=== PATIENT | female | born 1940 | race Caucasian/White ===

== ENCOUNTER 2018-05-07 18:14 | Emergency (ER) | payer MEDICARE, OTHER, SELFPAY ==
[2018-05-07 18:15] VITALS: BP 192/79; PULSE 73; RESP 14; TEMP 36.8; O2SAT 97; BMI 27.2
--- NOTE | 2018-05-07 18:51 | CT_ITS ---
STUDY: CT BRAIN WITHOUT CONTRAST REASON FOR EXAM: Female, 77 years old. Confusion. Pain. RADIATION DOSAGE (If Supplied By Facility): CTDIvol = ( 44.99 ) mGy, DLP = ( 745.49 ) mGycm TECHNIQUE: Transaxial CT imaging of the brain was performed without administration of intravenous contrast material. Individualized dose optimization techniques were used for this CT. COMPARISON: None. FINDINGS: Normal soft tissue structures. Normal calvarium. Heavily calcified vessels are seen at the base of the brain. Normal size ventricles and extra-axial spaces for the patient's age. Normal white matter tracts of the cerebral hemispheres. Normal basal ganglia and thalami. Normal brainstem. Normal cerebellum. There is no intracranial hemorrhage. There are no findings of an acute ischemic infarction. Normal visualized paranasal sinuses. CT/Brain/Head without Contrast IMPRESSION: Normal unenhanced CT scan of the brain. Electronically Signed: Jagjit Clemens MD at 19:59 EDT , Service support ,
[2018-05-07 19:17] LABS: Absolute Lymphocyte Count 2.33 X10^3/ul (0.83-4.51); Absolute Neutrophil Count 3.5 X10^3/uL (2.0-7.7); Basophil# 0.01 X10^3/uL; Basophil% 0.2 % (0-1); Eosinophil# 0.17 X10^3/uL; Eosinophils% 2.6 % (0-5); Hematocrit 39.5 % (37-47); Hemoglobin 12.7 g/dl (12.0-15.0); Lymphocyte # 2.33 X10^3/ul (4.0); Mean Corp Hgb Conc 32.2 g/gl (32-36); Mean Corpuscular Hgb 28.5 pg (27.0-32.0); Mean Corpuscular Volume 88.8 fL (81-99); Mean Platelet Vol. 9.5 fl (6.2-12.0); Monocyte# 0.45 X10^3/uL; Platelet Count 184 K/mm3 (150-450); RBC Distribution Width CV 14.2 % (11.6-14.6); RBC Distribution Width SD 46.2 fl (35.1-43.9); Red Blood Count 4.45 M/mm3 (4.2-5.4); White Blood Count 6.5 K/mm3 (4.4-11.0)
[2018-05-07 19:23] LABS: POSITIVE COUNT NO; POSITIVE DIFFERENTIAL NO; POSITIVE MORPHOLOGY NO
[2018-05-07 19:38] LABS: Anion Gap 6 (5-15); BUN 19 mg/dL (7-18); Calcium,Total 9.1 mg/dL (8.5-10.1); Chloride 100 mmol/L (98-107); EST Glomerular Filtration Rate 57 mL/min (>60); Est Glom Filt Rate - Afr Amer 69 mL/min (>60); Estimated Creatinine Clearance 39.39 ml/min; Glucose 128 mg/dL (74-106); Potassium 3.9 mmol/L (3.5-5.1); Sodium Level 136 mmol/L (136-145)
[2018-05-07 20:04] LABS: Bacteria 0 SEEN /hpf (None Seen); Mucous, Urine 0 SEEN /hpf (<or=2+); Red Blood Cells-Urine 0 SEEN /hpf (0-5)
[2018-05-07 20:08] LABS: Color, Urine Yellow (Yellow); Glucose, Dipstick Normal (Normal); Ketone-Dipstick Negative (Negative); Leukocyte Esterase-Dipstick 100 /ul (Negative); Nitrite-Dipstick Negative (Negative); Occult Blood-Urine Negative /ul (Negative); Protein-Dipstick Negative (Negative); Urine Bilirubin Dipstick Negative (Negative); Urine Clarity Clear (Clear); Urine Urobilinogen Normal (Normal)
[2018-05-07 20:48] LABS: Squamous Epithelial Cells - UA 0-5 SEEN /hpf (5-10); White Blood Cells 0-5 SEEN /hpf (0-5)
[2018-05-07 21:20] VITALS: BP 161/70; PULSE 65; RESP 17; O2SAT 95
--- NOTE | 2018-05-07 21:20 | ED.VISSUMM ---
- ER Visit Summary Date of Service: 05/07/18 Chief Complaint: Left occipital intermittent severe pain, right atraumatic intermittent shoulder pain, dysuria and change in mental status History of Present Illness: The patient is a 77 F who has history of hypertension, GERD and depression. She states she is depressed. She lives alone. She states her daughters do call her daily. They have not noted any problems with speech or slurring of her words. They have noted that she has been forgetful. She denies any ocular, visual or auditory symptoms. She denies problems with fluency or slurring of her words. She denies cardiac or respiratory symptoms. She denies nausea, vomiting or diarrhea. She does complain of frequency and dysuria. She states she has had urinary tract infections in the past. She does report being depressed and anxious. She states the left occipital and right shoulder pain are alleviated with Tylenol. Daughters were concerned because she was talking using her cell phone yesterday and asked where her cell phone was while she was talking on cell phone. She has gotten lost as well. There is no history of dementia. Physical Examination: Pleasant elderly woman with an elevated blood pressure of 192/79. Vital signs otherwise unremarkable. Head is atraumatic normocephalic. Pupils are equal round reactive. Extraocular muscles are intact. TMs are pearly white with landmarks noted. Nares patent with no drainage. Posterior pharynx without erythema or exudate. Uvula is midline. There is no dysphonia or dysphasia. Trachea is midline. There is no stridor with auscultation of the neck. There is no lesions noted left occipital area. Heart is regular without murmur, gallop or rub. S1 and S2 are normal. Lungs are clear to auscultation with good movement of air bilaterally. She has full active range of motion of the right upper extremity. Axillary, median, radial and ulnar function intact. DTRs at the biceps, brachialis, triceps, patella and ankle are 1+ and symmetric. Is no clonus or Babinski sign noted. Abdomen is soft nontender with no suprapubic discomfort. There is no CVA tenderness noted. She is alert and oriented ?3. Motor sensory are intact. Cerebellar testing is normal. Test Results: CBC is normal. Basic metabolic panel reveals elevated glucose 128. UA is remarkable leukoesterase otherwise negative. CT of the head was reviewed by me interpreted radiologist as negative. Patient was informed of her results and need for follow-up with Dr. Adriano Obrien iii Emergency Department Course and Treatment: With change in mental status will obtain CT to evaluate for atrophy, mass/tumor. Because she complains of urinary symptoms UA was obtained and basic blood work was obtained. 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 Treatment Plan: Outpatient follow-up with her primary care physician Disposition: Discharged home Impression: 1. 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 Depression 3. Dysuria unknown etiology 4. Hypertension and hypertensive patient's This note was generated with [employer] dictation software. It may contain incorrect words, spelling, and punctuation that were not noted in review of the chart prior to signing ED Disposition - Plan for ED Patient: Disposition: Home or Assisted Living Chief Complaint: Weakness Instructions: ED Confusion, ED Dysuria Uncertain Cause, ED Depression Referrals: Adriano Obrien III, MD [Primary Care Provider] - 5-7 Days
[2018-05-07 21:27] VITALS: BP 161/70; PULSE 65; RESP 17; O2SAT 99
== END 2018-05-07 21:37 | disposition home or self-care (01) ==
PROVIDERS: Emergency Provider Emergency Medicine; Family Provider Family Medicine; PCP Family Medicine
DX: R41.82 Altered mental status, unspecified (principal); F32.9 Major depressive disorder, single episode, unspecified; R30.0 Dysuria; I10 Essential (primary) hypertension; R51 Headache; M25.511 Pain in right shoulder; R35.0 Frequency of micturition; R60.0 Localized edema; K21.9 Gastro-esophageal reflux disease without esophagitis; Z87.440 Personal history of urinary (tract) infections; Z79.82 Long term (current) use of aspirin; Z79.899 Other long term (current) drug therapy
CPT/HCPCS: 70450; 80048; 81001; 85025; 99283

== ENCOUNTER → 2018-06-20 09:27 | Outpatient (CLI) | payer MEDICARE, OTHER, SELFPAY ==
--- NOTE | 2018-06-20 09:32 | CT_ITS ---
STUDY: CT ABDOMEN AND PELVIS WITHOUT CONTRAST REASON FOR EXAM: Female, 77 years old. Two-week history of low back pain with a UTI and microhematuria. RADIATION DOSAGE (If Supplied By Facility): CTDIvol = ( 10.37 ) mGy, DLP = ( 430.95 ) mGycm TECHNIQUE: Transaxial images were obtained from the dome of the diaphragm to the symphysis pubis without oral contrast, and without intravenous contrast. Sagittal and coronal images were reconstructed. Individualized dose optimization techniques were used for this CT. COMPARISON: None. FINDINGS: The visualized lung bases are unremarkable. Coronary artery calcification. Normal liver. Normal gallbladder and extrahepatic biliary system. Normal spleen. Normal pancreas. Normal bilateral adrenal glands. There are 2 left renal cysts. The cyst measures 4.5 cm x 4.1 cm x 3.7 cm in the upper lateral aspect. There is also evidence of a 4.6 cm x 5.6 m cyst in the inferior lateral portion of the right kidney. Normal left kidney. No evidence of hydronephrosis. Normal visualized stomach. Normal small intestine. There are multiple colonic diverticula consistent with diverticulosis. The appendix is visualized and appears normal. There is diffuse atherosclerotic calcification of the abdominal aorta and its major visceral branches, without a demonstrated aneurysm. Normal inferior vena cava. Normal retroperitoneum. Normal urinary bladder. There is evidence of bilateral tubal ligation. There is a small umbilical hernia containing fat. There are diffuse degenerative changes of the visualized lumbar spine. CT/Abdomen/Pelvis without Cont IMPRESSION: Right renal cysts. Sigmoid diverticulosis. No abnormal calcification is seen within the kidneys or course of the ureters. Electronically Signed: Fredrick Hester MD at 10:27 EST Tel [phone], Service support ,
== END ==
PROVIDERS: Family Provider Family Medicine; PCP Family Medicine; Referring Provider Nurse Practitioner Adult Health; Visit Provider Nurse Practitioner Adult Health
DX: R31.1 Benign essential microscopic hematuria (principal); N20.0 Calculus of kidney; N30.10 Interstitial cystitis (chronic) without hematuria; N39.0 Urinary tract infection, site not specified
CPT/HCPCS: 74176; 87086

== ENCOUNTER → 2018-06-20 19:50 | Outpatient (CLI) | payer MEDICARE, OTHER, SELFPAY | PROVIDERS: Family Provider Family Medicine; PCP Family Medicine; Referring Provider Nurse Practitioner Adult Health; Visit Provider Nurse Practitioner Adult Health | DX: N39.0 Urinary tract infection, site not specified (principal) | CPT/HCPCS: 87086 ==

== ENCOUNTER → 2018-11-26 16:24 | Outpatient (CLI) | payer MEDICARE, OTHER, SELFPAY | PROVIDERS: Family Provider Family Medicine; PCP Family Medicine; Referring Provider Nurse Practitioner Adult Health; Visit Provider Nurse Practitioner Adult Health | DX: R82.998 Other abnormal findings in urine (principal) | CPT/HCPCS: 87086; 87088 ==

== ENCOUNTER 2018-12-12 18:16 | Emergency (ER) | payer MEDICARE, OTHER, SELFPAY ==
[2018-12-12 18:17] VITALS: BP 162/79; PULSE 85; RESP 18; TEMP 36.6; O2SAT 96; BMI 27.4
--- NOTE | 2018-12-12 19:08 | CT_ITS ---
STUDY: CT BRAIN WITHOUT CONTRAST REASON FOR EXAM: Female, 78 years old. fall RADIATION DOSAGE (If Supplied By Facility): DLP = ( 779.24 ) mGycm TECHNIQUE: Transaxial CT imaging of the brain was performed without administration of intravenous contrast material. Individualized dose optimization techniques were used for this CT. COMPARISON: May 07, 2018 FINDINGS: There is no acute bleed or infarct. There are normal white matter tracts. The ventricles are normal in configuration. There is no hydrocephalus. There is bilateral maxillary sinus disease. The mastoid air cells are well aerated. There is no skull fracture. CT/Brain/Head without Contrast IMPRESSION: No acute intracranial abnormality. Bilateral maxillary sinus disease. Electronically Signed: Tripp Perry, at 20:12 EDT Tel , Service support ,
[2018-12-12] MEDS: Diphth,Pertuss(Acell),Tet Vac 0.5 ML Vial IM (19:25)
[2018-12-12 19:28] VITALS: O2SAT 96
--- NOTE | 2018-12-12 20:50 | ED.VISSUMM ---
- ER Visit Summary Date of Service: 12/12/18 Chief Complaint: Fall History of Present Illness: The patient is a 78 F who sustained a mechanical fall. She hit the left side of her face. She also sustained abrasions to her bilateral forearms. Denies any arm pain. Denies head pain or neck pain. Denies loss of consciousness. She takes an aspirin twice a week. No other blood thinners. No other complaints. Physical Examination: Vitals unremarkable. Left forehead abrasion noted. Otherwise HEENT exam and head exam unremarkable. Neck is nontender. Patient has multiple bilateral forearm skin tears. No bony tenderness. Good range of motion. No deformities. Neurovascular intact distally. Exam otherwise unremarkable. Test Results: CT brain unremarkable. Emergency Department Course and Treatment: Tetanus updated. Skin tears were dressed. No indication for suturing. CT brain unremarkable. No indication for further diagnostic testing. Patient will be discharged. Treatment Plan: As above Disposition: Discharge Impression: 1. Bilateral forearm abrasions 2. Concussion without loss of consciousness This note was generated with [employer] dictation software. It may contain incorrect words, spelling, and punctuation that were not noted in review of the chart prior to signing ED Disposition - Plan for ED Patient: Disposition: Home or Assisted Living Instructions: ED Mechanical Fall Referrals: Adriano Obrien III, MD [Primary Care Provider] -
--- NOTE | 2018-12-12 20:50 | ED.DEP ---
ED Disposition - Plan for ED Patient: Instructions: ED Mechanical Fall Referrals: Adriano Obrien III, MD [Primary Care Provider] -
[2018-12-12 21:00] VITALS: BP 158/64; PULSE 77; RESP 15; O2SAT 98
== END 2018-12-12 21:01 | disposition home or self-care (01) ==
LOC: ED 19:21
PROVIDERS: Emergency Provider Emergency Medicine; Family Provider Family Medicine; PCP Family Medicine
DX: S06.0X0A Concussion without loss of consciousness, initial encounter (principal); S00.81XA Abrasion of other part of head, initial encounter; S50.812A Abrasion of left forearm, initial encounter; S50.811A Abrasion of right forearm, initial encounter; W19.XXXA Unspecified fall, initial encounter; Y93.9 Activity, unspecified; Y92.9 Unspecified place or not applicable
CPT/HCPCS: 70450; 90471; 90715; 99282

== ENCOUNTER 2019-02-11 11:19 | Inpatient (IN) | payer MEDICARE, OTHER, SELFPAY ==
[2019-02-11] VITALS (7 sets, daily range): BP systolic 121–143; BP diastolic 44–75; PULSE 81–89; RESP 16–18; TEMP 36.8–36.9; O2SAT 96–98; BMI 27.3; BMI 27.4; BMI 27.0
--- NOTE | 2019-02-11 11:40 | ED.DCSUM_ITS ---
- ER Visit Summary Date of Service: 02/11/19 Chief Complaint: Fever, positive blood culture History of Present Illness: The patient is a 78 F with fever of mild lower abdominal pain of the past 4 days. She had mild cough. She was seen by PCP yesterday. Chest x-ray was clear and urine was equivocal. Blood culture returned with gram-negative rods today and patient was sent to the emergency room. Patient reports her last fever was yesterday. She has had no nausea or vomiting. She has mild aching in her lower abdomen and reports pressure when she urinates. I did call her pharmacy and she was given a prescription for Levaquin 500 mg yesterday. She has taken 1 dose. Physical Examination: Vital signs are unremarkable. Patient sitting upright in bed no acute distress. Heart is regular rate and rhythm. Lung sounds are clear. Abdomen is soft with mild suprapubic tenderness. No guarding or rebound. Hypoactive bowel sounds are present. Test Results: CBC is normal at 10.2 but left shift is noted. Hemoglobin is 11.1 and platelet count is 130,000. Chemistry studies significant for sodium of 127 and a chloride of 92. BUN is 41 and creatinine is 1.92. LFTs revealed direct bili of 0.32. Urinalysis shows 10-25 white cells with 3+ bacteria. Lactate is 1.4. Blood cultures and urine cultures were sent again today. Emergency Department Course and Treatment: Patient was given IV fluids along with IV Rocephin. She will be admitted for further treatment. Treatment Plan: [] Disposition: Admit Impression: 1. Cystitis 2. Bacteremia This note was generated with [employer] dictation software. It may contain incorrect words, spelling, and punctuation that were not noted in review of the chart prior to signing ED Disposition - Plan for ED Patient: Referrals: Adriano Obrien III, MD [Primary Care Provider] -
[2019-02-11 11:56] LABS: Mucous, Urine 0 SEEN /hpf (<or=2+)
[2019-02-11] MEDS: 0.9% Normal Saline 1,000 ML 150 ML IV (12:08)
[2019-02-11] MEDS: Ceftriaxone 1 GM/50 ML BAG IV (12:08)
[2019-02-11 12:19] LABS: Absolute Lymphocyte Count 0.45 X10^3/ul (0.83-4.51); Differential Indicated SCAN CRITERIA MET; Eosinophil# 0.02 X10^3/uL; Eosinophils% 0.2 % (0-5); Hematocrit 33.4 % (37-47); Hemoglobin 11.1 g/dl (12.0-15.0); Lymphocyte # 0.45 X10^3/ul (4.0); Lymphocyte % 4.4 % (19-41); Mean Corp Hgb Conc 33.2 g/gl (32-36); Mean Corpuscular Hgb 28.7 pg (27.0-32.0); Mean Corpuscular Volume 86.3 fL (81-99); Mean Platelet Vol. 10.5 fl (6.2-12.0); Monocyte# 0.68 X10^3/uL; Monocyte% 6.7 % (0-10); Neutrophil # 8.99 X10^3/uL (2.7-7.7); Neutrophil % 88.5 % (47-70); POSITIVE COUNT NO; POSITIVE DIFFERENTIAL YES; POSITIVE MORPHOLOGY NO; Platelet Count 130 K/mm3 (150-450); RBC Distribution Width CV 14.1 % (11.6-14.6); RBC Distribution Width SD 43.4 fl (35.1-43.9); Red Blood Count 3.87 M/mm3 (4.2-5.4); White Blood Count 10.2 K/mm3 (4.4-11.0)
[2019-02-11 12:27] LABS: AST(SGOT) 14 U/L (15-37); Alanine Aminotransfer ALT/SGPT 19 U/L (13-56); Albumin, Serum 3.3 g/dL (3.2-5.0); Alkaline Phosphatase 92 U/L (45-117); Anion Gap 9 (5-15); BUN 41 mg/dL (7-18); BUN/Creat Ratio 21.4 RATIO (10-20); Bilirubin, Direct 0.32 mg/dL (0.00-0.30); Calcium,Total 8.9 mg/dL (8.5-10.1); Chloride 92 mmol/L (98-107); Creatinine, Serum 1.92 mg/dL (0.55-1.02); EST Glomerular Filtration Rate 27 mL/min (>60); Est Glom Filt Rate - Afr Amer 32 mL/min (>60); Estimated Creatinine Clearance 20.18 ml/min; Globulin 3.7 g/dL (2.2-4.2); Glucose 102 mg/dL (74-106); Potassium 3.5 mmol/L (3.5-5.1); Sodium Level 127 mmol/L (136-145)
[2019-02-11 12:29] LABS: Color, Urine Yellow (Yellow); Glucose, Dipstick Normal (Normal); Ketone-Dipstick Negative (Negative); Leukocyte Esterase-Dipstick 100 /ul (Negative); Nitrite-Dipstick Negative (Negative); Occult Blood-Urine 50 /ul (Negative); Protein-Dipstick 30 mg/dl (Negative); Specific Gravity, Urine 1.015 (1.002-1.030); Urine Bilirubin Dipstick Negative (Negative); Urine Clarity Cloudy (Clear); Urine Urobilinogen 1 mg/dl (Normal)
[2019-02-11 12:31] LABS: Bacteria 3+ /hpf (None Seen); Red Blood Cells-Urine 0-5 SEEN /hpf (0-5); Squamous Epithelial Cells - UA 0-5 SEEN /hpf (5-10); White Blood Cells 10-25 SEEN /hpf (0-5)
[2019-02-11 12:34] LABS: Lactic Acid 1.4 mmol/L (0.4-2.0)
--- NOTE | 2019-02-11 13:12 | PCM.HP.STD ---
Problem List (1) UTI (urinary tract infection) Status: Acute (2) Gram-negative bacteremia Status: Acute (3) Recurrent UTI Status: Chronic (4) Hypertension Status: Chronic (5) History of kidney stone Status: Chronic History of Present Illness Date of Admission: 02/11/19 Chief Complaint: UTI symptoms and bacteremia The patient is a 78 year with multiple comorbidities as listed above has increased perineal pressure, lower back pain, increased frequency and urgency for last 4 days. The patient has generalized weakness, fever and chills for last 4 days. The patient denies burning micturition/dysuria. Patient was seen by PCP Dr. Adriano Obrien iii on 02/10 urine was equivocal on dipstick. Chest x-ray was clear. Blood cultures were drawn. The patient was given Levaquin 500 mg and she took 1 dose. The patient was called back for positive blood culture, gram-negative rods to ER. The patient has chronic back pain. In ED, patient was not febrile, not tachycardic, pulse ox 98% on room air. Blood pressure stable. Initial labs did not show leukocytosis but neutrophil 88%.Labs BUN/creatinine 41/1.92. Sodium 127, K3.5, bicarb 26. UA positive of WBCs 10-20 5/7, LE 100, nitrite negative bacteria 3+. Past Medical History Past Medical History (Chronic Problems): Chronic Problems Recurrent UTI (Chronic) Hypertension (Chronic) History of kidney stone (Chronic) Allergies ciprofloxacin [From Cipro] Allergy (Verified 02/11/19 11:22) Unknown ciprofloxacin HCl [From Cipro] Allergy (Verified 02/11/19 11:22) Unknown sulfamethoxazole [From Bactrim] Allergy (Verified 02/11/19 11:22) Unknown trimethoprim [From Bactrim] Allergy (Verified 02/11/19 11:22) Unknown acetaminophen [From [place]] Adverse Reaction (Verified 02/11/19 11:23) MENTAL STATUS CHANGE hydrocodone [From [place]] Adverse Reaction (Verified 02/11/19 11:23) MENTAL STATUS CHANGE nitrofurantoin [From Macrobid] Adverse Reaction (Verified 02/11/19 11:23) Upset Stomach Home Medications: Ambulatory Orders Medication Instructions Recorded Aspirin E.C. [Ecotrin] 81 mg PO MOFR 05/28/14 Meloxicam [Mobic] 15 mg PO DAILY 05/28/14 Pantoprazole Sodium [Protonix] 40 mg PO DAILY 05/28/14 traZODone [Desyrel] 50 mg PO QHS 05/28/14 Lisinopril [Zestril] 40 mg PO DAILY 12/24/16 Acetaminophen [Tylenol] 650 mg PO Q6H PRN PRN 05/07/18 Fluticasone 0.05% [Flonase Nasal 2 spray NASAL DAILY 05/07/18 [place]] hydroCHLOROthiazide 12.5 mg PO DAILY 05/07/18 [Hydrochlorothiazide] Amlodipine Besylate 5 mg PO DAILY 02/11/19 Cholecalciferol (Vitamin D3) 2,000 unit PO DAILY 02/11/19 [Vitamin D3] Levofloxacin 500 mg PO DAILY 02/11/19 Levothyroxine [Synthroid] 25 mcg PO DAILY 02/11/19 Smoking Status: Never smoker Review of Systems Constitutional: Reports: Chills, Fever, Weakness. Denies: Weight Change HEENT: Denies: Head Aches, Sinus Congestion, Sinus Drainage Cardiovascular: Reports: Edema. Denies: Chest Pain, Palpitations Respiratory: Denies: Cough, Shortness of breath at rest, Sputum production Gastrointestinal: Denies: Abdominal Pain, Nausea, Vomiting Genitourinary: Reports: Frequency, Hesitancy, Incontinence, Urgency, - - Mild suprapubic pressure. Denies: Dysuria Musculoskeletal: Reports: Joint Pain. Denies: Joint Tenderness Skin: Denies: Rash, Wounds Neurological: Denies: Numbness, Tingling, Focal weakness Psychiatric: Denies: Anxiety, Depression, Homicidal Ideations, Suicidal Ideations Hematologic/ Lymphatic: Denies: Easy Bruising, Easy Bleeding VTE Information - Inpt Only VTE Present on Admission: No VTE Mechan Device Prophylaxis: None VTE Pharm Prophylaxis ordered?: Yes Patient Problems: Active and Suspected Problems UTI (urinary tract infection) (Acute) Gram-negative bacteremia (Acute) - Physical Exam General: Alert, Oriented x3, Cooperative HEENT: Atraumatic, PERRLA, EOMI, Normocephalic Oral: Dry Mucosa Neck: Supple, No JVD, Negative Carotid Bruits Lungs: Clear to auscultation, Normal air movement Cardiovascular: Regular rate, Regular Rhythm, Normal S1, Normal S2, No murmurs Abdomen: Bowel Sounds Present, Soft, Non Tender, Non-Distended Extremities: Capillary Refill Less than 3 Seconds, Edema - Bilateral lower extremity edema 3+, chronic in nature. Bilateral lower extremity varicose vein present Skin: No rashes, No breakdown Musculoskeletal: No Tenderness to Palpation of Joints or Extremities, Arthritic Changes Neurological: Cranial nerves II-XII grossly intact, Deep Tendon Reflexes 2+/4 and Symmetrical, Neuro grossly intact, Motor Exam 5/5 strength throughout Psych/Mental Status: Normal Affect, Appropriate Vital Signs Temp Pulse Resp BP Pulse Ox 98.4 F 85 17 143/75 H 97 02/11/19 13:00 02/11/19 13:00 02/11/19 13:00 02/11/19 13:00 02/11/19 13:00 Oxygen Delivery Method Room Air Weight: 159 lb 6.307 oz Body Mass Index (BMI) 27.3 Laboratory Tests Past 24 Hrs 02/11/19 02/11/19 02/11/19 11:40 12:00 12:00 WBC 10.2 RBC 3.87 L Hgb 11.1 L Hct 33.4 L MCV 86.3 MCH 28.7 MCHC 33.2 RDW 14.1 RDW Differential 43.4 Plt Count 130 L MPV 10.5 Immature Gran % (Auto) 0.200 Neut % (Auto) 88.5 H Lymph % (Auto) 4.4 L [place] % (Auto) 6.7 Eos % (Auto) 0.2 Baso % (Auto) 0.0 Absolute Neuts (auto) 9.0 H Absolute Lymphs (auto) 0.45 L Total Counted Not Reportable Differential Comment Sodium 127 L Potassium 3.5 Chloride 92 L Carbon Dioxide 26.0 Anion Gap 9 BUN 41 H Creatinine 1.92 H Estim Creat Clear Calc 20.18 Est GFR (MDRD) Af Amer 32 L Est GFR (MDRD) Non-Af 27 L BUN/Creatinine Ratio 21.4 H Glucose 102 Lactic Acid Calcium 8.9 Total Bilirubin 1.00 Direct Bilirubin 0.32 H AST 14 L ALT 19 Alkaline Phosphatase 92 Total Protein 7.0 Albumin 3.3 Globulin 3.7 Urine Color Yellow Urine Clarity Cloudy Urine pH 5.0 Ur Specific [place] 1.015 Urine Protein 30 H Urine Glucose (UA) Normal Urine Ketones Negative Urine Occult Blood 50 H Urine Nitrite Negative Urine Bilirubin Negative Urine Urobilinogen 1 H Ur Leukocyte Esterase 100 H Urine RBC 0-5 SEEN Urine WBC 10-25 SEEN Ur Squamous Epith Cells 0-5 SEEN Urine Bacteria 3+ Urine Mucus 0 SEEN 02/11/19 12:00 WBC RBC Hgb Hct MCV MCH MCHC RDW RDW Differential Plt Count MPV Immature Gran % (Auto) Neut % (Auto) Lymph % (Auto) [place] % (Auto) Eos % (Auto) Baso % (Auto) Absolute Neuts (auto) Absolute Lymphs (auto) Total Counted Differential Comment Sodium Potassium Chloride Carbon Dioxide Anion Gap BUN Creatinine Estim Creat Clear Calc Est GFR (MDRD) Af Amer Est GFR (MDRD) Non-Af BUN/Creatinine Ratio Glucose Lactic Acid 1.4 Calcium Total Bilirubin Direct Bilirubin AST ALT Alkaline Phosphatase Total Protein Albumin Globulin Urine Color Urine Clarity Urine pH Ur Specific [place] Urine Protein Urine Glucose (UA) Urine Ketones Urine Occult Blood Urine Nitrite Urine Bilirubin Urine Urobilinogen Ur Leukocyte Esterase Urine RBC Urine WBC Ur Squamous Epith Cells Urine Bacteria Urine Mucus Assessment/Plan All Active Problems UTI (urinary tract infection) (Acute) Gram-negative bacteremia (Acute) The patient is a 78 year with multiple comorbidities as listed above has increased perineal pressure, lower back pain, increased frequency and urgency for last 4 days consistent with UTI. The patient has generalized weakness, fever and chills for last 4 days. Patient has gram-negative kishore bacteremia from blood cultures drawn in PCP office on 02/10/2019. Patient denies any history of recent urethral catheterization/instrumentation. 1. UTI, possible cystitis but rule out pyelonephritis: Patient has history of kidney stones and had ureteral stone many years ago probably by Dr. Navarrete. Started on IV ceftriaxone and will continue it. Urine culture and blood cultures x2 sent from ER. Ultrasound kidneys and bladder ordered. Bladder scan for urinary retention. IV fluid normal saline at 100 mL/h. 2. Acute kidney injury possible prerenal/UTI infection: Baseline BUN/creatinine 19/1.0 in April 2018. Currently BUN/creatinine 41/1.92. On IV fluid normal saline. Monitor kidney function and electrolytes daily. Hypertension: Blood pressure medications continue. 3. Bilateral lower extremity swelling/edema with varicose vein possible lymphedema: Patient on home medication, amlodipine discontinued. Venous Doppler ordered. Bilateral Michael wrap bandage if DVT negative. 4. Hypothyroidism, GERD: Diffuse degenerative joint disease and anxiety: Home medications continued. DVT prophylaxis: On Lovenox 30 mg, adjusted to creatinine clearance subcu daily. Code Visit Inpatient E&M: 98188 Init Hosp L3
--- NOTE | 2019-02-11 13:40 | CASEMGMT ---
RN CM Assessment Introduced role of RN CM to patient and patient Dtr Connie at bedside.? Patient is alert, oriented and able?to participate in RN CM Assessment. ?Care providers, pharmacy, and demographics verified. Presentation: Lower Abd pain x4 days. Seen PCP yesterday- cxr clear and Urine equivocal, started on Levaquin (has taken one dose). BCX returned today- gram neg rods, sent to ER. Admit Dx: UTI w/Bacteremia Re-Admit: No Barriers/Issues: None PCP: Adriano Obrien III Specialists: Adrián- Kerri Preferred Pharmacy: [facility] Insurance: [employer], [employer] Rx Benefit:?Yes LNOK: Dtr Connie Eladia LEMONS/HPOA: No, Declines offered information Living Arrangements:?Lives alone in a SS home, 4 steps to enter. ADL?s: Independent with ambulation and ADLs Transportation: Patient drives, Dtr Connie to transport on DC DME: None HHC: Past SNF: None Goal: Home, does not think will have any needs. Denies questions/concerns. Aware CM remains available for any emerging needs. DC PLAN: Home with no anticipated needs identified at this time. Tayler Arita RNCM
--- NOTE | 2019-02-11 13:46 | VDLE_ITS ---
Reason For Study: swelling RIGHT LEFT GSV is normal. GSV is normal. CFV is compressible, spontaneous, phasic, CFV is compressible, spontaneous, phasic, competent and demonstrates normal competent, and demonstrates normal augmentation. augmentation. FV is compressible, spontaneous, phasic, FV is compressible, spontaneous, phasic, competent and demonstrates normal competent and demonstrates normal augmentation. augmentation. POP V is compressible, spontaneous, phasic, POP V is compressible, spontaneous, phasic, competent and demonstrates normal competent and demonstrates normal augmentation. augmentation. T/P Trunk is compressible. T/P Trunk is compressible. PTV is compressible. PTV is compressible. RT PerV is compressible. LT PerV is compressible. Procedure Exam performed portable in patient room. The exam was diagnostic. A preliminary report was called and/or faxed to the pt's RN. Interpretation Summary No evidence for acute deep venous thrombosis bilateral lower extremities with patent and compressible bilateral great saphenous veins. Ordering Physician: Edwardo Mcadams Referring Physician: LAURA Obrien M.D. Performed By: Tanmay Springer Nathan
--- NOTE | 2019-02-11 14:07 | US_ITS ---
STUDY: RENAL ULTRASOUND - COMPLETE REASON FOR EXAM: Female, 78 years old. UTI TECHNIQUE: Ultrasound evaluation of the kidneys was performed with real-time and static baer-scale imaging. COMPARISON: CT scan of 06/20/2018 FINDINGS: RIGHT KIDNEY: Normal location of the right kidney, which is normal in size. The right kidney measures 10.1 x 5.1 x 4.0 cm. There is a normal cortex of the right kidney. The renal cortex measures 1.6 cm. 2 renal cysts are seen measuring 3.7 and 5.1 cm There are no right renal calculi. There is no right hydronephrosis. DISTAL RIGHT URETER: There is non-visualization of the distal right ureter. There is no demonstrated right ureterovesical junction calculus. There is no demonstrated right ureteral jet. LEFT KIDNEY: Normal location of the left kidney, which is normal in size. The left kidney measures 12.2 x 5.4 x 5.8 cm. There is a normal cortex of the left kidney. The renal cortex measures 2.2 cm. There is no left renal mass or cyst. There are no left renal calculi. There is no left hydronephrosis. DISTAL LEFT URETER: There is non-visualization of the distal left ureter. There is no demonstrated left ureterovesical junction calculus. There is no demonstrated left ureteral jet. BLADDER: The distended urinary bladder has a volume of 52 ml. There is a normal wall thickness of the distended urinary bladder. There is no demonstrated mass within the urinary bladder. There are no demonstrated bladder calculi. US/Kidney and Bladder IMPRESSION: No acute abnormalities. Stable right renal cysts. Electronically Signed: Jagjit Clemens MD at 17:33 EDT , Service support ,
[2019-02-11] MEDS: Acetaminophen 325 MG Tablet 650 MG PO ×2 (15:36→21:41)
[2019-02-11] MEDS: 0.9% Normal Saline 1,000 ML 100 ML IV (16:57)
[2019-02-11] MEDS: Enoxaparin 30 MG/0.3 ML Syringe SC (17:00)
[2019-02-11] MEDS: traZODone 50 MG Tablet PO (21:11)
[2019-02-12] MEDS: 0.9% Normal Saline 1,000 ML 100 ML IV (02:11)
[2019-02-12 02:13] VITALS: BP 149/56; PULSE 89; RESP 16; TEMP 36.9; O2SAT 95
[2019-02-12] MEDS: Acetaminophen 325 MG Tablet 650 MG PO (05:44)
[2019-02-12] MEDS: Levothyroxine 25 MCG TABLET PO (05:45)
[2019-02-12 06:11] LABS: Absolute Lymphocyte Count 0.45 X10^3/ul (0.83-4.51); Absolute Neutrophil Count 4.6 X10^3/uL (2.0-7.7); Eosinophil# 0.03 X10^3/uL; Eosinophils% 0.5 % (0-5); Hematocrit 31.1 % (37-47); Hemoglobin 10.5 g/dl (12.0-15.0); Lymphocyte # 0.45 X10^3/ul (4.0); Lymphocyte % 8.1 % (19-41); Mean Corp Hgb Conc 33.8 g/gl (32-36); Mean Corpuscular Hgb 29.2 pg (27.0-32.0); Mean Corpuscular Volume 86.6 fL (81-99); Mean Platelet Vol. 10.7 fl (6.2-12.0); Monocyte# 0.46 X10^3/uL; Monocyte% 8.2 % (0-10); Neutrophil # 4.63 X10^3/uL (2.7-7.7); Platelet Count 125 K/mm3 (150-450); RBC Distribution Width CV 14.3 % (11.6-14.6); RBC Distribution Width SD 43.8 fl (35.1-43.9); Red Blood Count 3.59 M/mm3 (4.2-5.4); White Blood Count 5.6 K/mm3 (4.4-11.0)
[2019-02-12 06:17] LABS: Differential Indicated SCAN CRITERIA MET; POSITIVE COUNT NO; POSITIVE DIFFERENTIAL YES; POSITIVE MORPHOLOGY NO
[2019-02-12 06:18] LABS: Anion Gap 9 (5-15); BUN 34 mg/dL (7-18); BUN/Creat Ratio 25.2 RATIO (10-20); Calcium,Total 8.8 mg/dL (8.5-10.1); Chloride 101 mmol/L (98-107); Creatinine, Serum 1.35 mg/dL (0.55-1.02); EST Glomerular Filtration Rate 40 mL/min (>60); Est Glom Filt Rate - Afr Amer 49 mL/min (>60); Glucose 108 mg/dL (74-106); Potassium 3.5 mmol/L (3.5-5.1); Sodium Level 135 mmol/L (136-145); Thyroid Stim Hormone (TSH) 3.16 uIU/mL (0.358-3.74)
[2019-02-12 07:39] VITALS: BP 126/61; PULSE 79; RESP 18; TEMP 36.9; O2SAT 94
[2019-02-12] MEDS: Fluticasone 0.05% 1 SPRAY NASAL.SRY 2 SPRAY NASAL (07:42)
[2019-02-12] MEDS: Polyethylene Glycol 3350 17 GM PACKET PO (07:42)
[2019-02-12] MEDS: Pantoprazole Sodium 40 MG Tablet PO (07:50)
[2019-02-12] MEDS: Enoxaparin 30 MG/0.3 ML Syringe SC (07:50)
[2019-02-12] MEDS: Ceftriaxone 1 GM/50 ML BAG IV (10:16)
[2019-02-12 14:00] VITALS: BP 140/64; PULSE 82; RESP 18; TEMP 36.6; O2SAT 97
--- NOTE | 2019-02-12 16:07 | PCM.PN.HOSP ---
Patient Problems: Active and Suspected Problems UTI (urinary tract infection) (Acute) Gram-negative bacteremia (Acute) Subjective: Overall, patient is feeling better. No fever since admission. Denies chills/diaphoresis.. No tachycardia Objective: General: Alert, Oriented x3, Cooperative HEENT: Atraumatic, PERRLA, EOMI, Normocephalic Oral: Mucosa moist. Neck: Supple, No JVD, Negative Carotid Bruits Lungs: Clear to auscultation, Normal air movement Cardiovascular: Regular rate, Regular Rhythm, Normal S1, Normal S2, No murmurs Abdomen: Bowel Sounds Present, Soft, Non Tender, Non-Distended. No suprapubic or renal angle tenderness. Extremities: Capillary Refill Less than 3 Seconds, Edema - Bilateral lower extremity edema 3+, chronic in nature. Bilateral lower extremity varicose vein present Skin: No rashes, No breakdown Musculoskeletal: No Tenderness to Palpation of Joints or Extremities, Arthritic Changes Neurological: Cranial nerves II-XII grossly intact, Deep Tendon Reflexes 2+/4 and Symmetrical, Neuro grossly intact, Motor Exam 5/5 strength throughout Psych/Mental Status: Normal Affect, Appropriate Vitals/I&O's: Vital Signs Temp Pulse Resp BP Pulse Ox 97.9 F 82 18 140/64 H 97 02/12/19 14:00 02/12/19 14:00 02/12/19 14:00 02/12/19 14:00 02/12/19 14:00 Oxygen Delivery Method Room Air Weight: 157 lb 10.088 oz Body Mass Index (BMI) 27.0 Intake and Output for Last 24 Hours 02/10/19 02/11/19 02/12/19 23:59 23:59 23:59 Intake Total 3245 / 3245 Output Total 3400 / 3400 Balance -155 / -155 Microbiology Past 72 Hours 02/11/19 12:00 Blood Culture (Wb) - Anticubital Left Blood Culture - Preliminary Laboratory Results 02/12/19 05:24: Sodium 135 L, Potassium 3.5, Chloride 101, Carbon Dioxide 25.0, Anion Gap 9, BUN 34 H, Creatinine 1.35 H, Estim Creat Clear Calc 28.70, Est GFR (MDRD) Af Amer 49 L, Est GFR (MDRD) Non-Af 40 L, BUN/Creatinine Ratio 25.2 H, Glucose 108 H, Calcium 8.8, TSH 3.16 02/12/19 05:24: WBC 5.6, RBC 3.59 L, Hgb 10.5 L, Hct 31.1 L, MCV 86.6, MCH 29.2, MCHC 33.8, RDW 14.3, RDW Differential 43.8, Plt Count 125 L, MPV 10.7, Immature Gran % (Auto) 0.200, Neut % (Auto) 83.0 H, Lymph % (Auto) 8.1 L, [place] % (Auto) 8.2, Eos % (Auto) 0.5, Baso % (Auto) 0.0, Absolute Neuts (auto) 4.6, Absolute Lymphs (auto) 0.45 L, Total Counted Not Reportable Current Medications Acetaminophen (Tylenol) 650 mg PO Q6H PRN PRN PRN Reason: Mild Pain (1-3)/Temp > 100.7 F Last Admin: 02/12/19 05:44 Dose: 650 mg Documented by: Albuterol Sulfate (Ventolin Aerosols) 2.5 mg INHALATION Q2H PRN PRN PRN Reason: Shortness of Breath/Wheezing Aspirin (Ecotrin) 81 mg PO MOFR [facility] Cholecalciferol (Vitamin D) 2,000 unit PO DAILY [facility] Last Admin: 02/12/19 07:42 Dose: 2,000 unit Documented by: Docusate Sodium (Colace) 200 mg PO BID PRN PRN PRN Reason: Constipation Enoxaparin Sodium (Lovenox) 30 mg SC DAILY@1000 [facility] Last Admin: 02/12/19 07:50 Dose: 30 mg Documented by: Fluticasone Propionate (Flonase Nasal [place]) 2 spray NASAL DAILY [facility] Last Admin: 02/12/19 07:42 Dose: 2 spray Documented by: Ceftriaxone Sodium (Rocephin) 1 gm in 50 mls @ 100 mls/hr IV Q24H [facility] Last Admin: 02/12/19 10:16 Dose: 100 mls/hr Documented by: Levothyroxine Sodium (Synthroid) 25 mcg PO DAILY@0600 [facility] Last Admin: 02/12/19 05:45 Dose: 25 mcg Documented by: Nutritional Formula (Lactose Free) (Ensure Enlive) 120 ml PO 4X/DAY [facility] Last Admin: 02/12/19 14:02 Dose: Not Given Documented by: Ondansetron HCl (Zofran) 4 mg IV Q8H PRN PRN PRN Reason: NAUSEA/VOMITING Pantoprazole Sodium (Protonix) 40 mg PO DAILY [facility] Last Admin: 02/12/19 07:50 Dose: 40 mg Documented by: Polyethylene Glycol (Miralax) 17 gm PO DAILY [facility] Last Admin: 02/12/19 07:42 Dose: 17 gm Documented by: Promethazine HCl (Phenergan) 12.5 mg IV Q6H PRN PRN PRN Reason: Breakthrough nausea/vomiting Sodium Chloride () 10 - 40 ml IV UD PRN PRN Reason: SALINE FLUSH Trazodone HCl (Desyrel) 50 mg PO QHS [facility] Last Admin: 02/11/19 21:11 Dose: 50 mg Documented by: Medical Necessity - Tobacco Use Smoking Status: Never smoker Assessment/Plan All Active Problems UTI (urinary tract infection) (Acute) Gram-negative bacteremia (Acute) The patient is a 78 year with multiple comorbidities as listed above has increased perineal pressure, lower back pain, increased frequency and urgency for last 4 days consistent with UTI. The patient has generalized weakness, fever and chills for last 4 days. Patient has gram-negative kishore bacteremia from blood cultures drawn in PCP office on 02/10/2019. Patient denies any history of recent urethral catheterization/instrumentation. 1. UTI, possible cystitis but rule out pyelonephritis: Patient has history of kidney stones and had ureteral stone many years ago probably by Dr. Navarrete. Started on IV ceftriaxone and will continue it. Preliminary blood culture from 02/11 shows gram-negative rods. Urine culture is pending. Bladder scan for urinary retention. Renal bladder ultrasound shows no acute abnormalities. Stable right renal cyst. Distended urinary bladder volume 52 mL. Normal wall thickness of distended urinary bladder. No demonstrated mass or calculi. The patient is afebrile for more than 24 hours with no tachycardia or other systemic signs of infection. 2. Acute kidney injury possible prerenal/UTI infection: Baseline BUN/creatinine 19/1.0 in April 2018. Currently BUN/creatinine 41/1.92. On IV fluid normal saline. BUN/creatinine has improved 34/1.35. Hypertension: Blood pressure medications continue. 3. Bilateral lower extremity swelling/edema with varicose vein possible lymphedema: Patient on home medication, amlodipine discontinued. Venous Doppler ordered. Bilateral Michael wrap bandage if DVT negative. 4. Hypothyroidism, GERD: Diffuse degenerative joint disease and anxiety: Home medications continued. DVT prophylaxis: On Lovenox 30 mg, adjusted to creatinine clearance subcu daily. Microbiology Past 72 Hours 02/11/19 12:00 Blood Culture (Wb) - Anticubital Left Blood Culture - Preliminary Laboratory Results 02/12/19 05:24: Sodium 135 L, Potassium 3.5, Chloride 101, Carbon Dioxide 25.0, Anion Gap 9, BUN 34 H, Creatinine 1.35 H, Estim Creat Clear Calc 28.70, Est GFR (MDRD) Af Amer 49 L, Est GFR (MDRD) Non-Af 40 L, BUN/Creatinine Ratio 25.2 H, Glucose 108 H, Calcium 8.8, TSH 3.16 02/12/19 05:24: WBC 5.6, RBC 3.59 L, Hgb 10.5 L, Hct 31.1 L, MCV 86.6, MCH 29.2, MCHC 33.8, RDW 14.3, RDW Differential 43.8, Plt Count 125 L, MPV 10.7, Immature Gran % (Auto) 0.200, Neut % (Auto) 83.0 H, Lymph % (Auto) 8.1 L, [place] % (Auto) 8.2, Eos % (Auto) 0.5, Baso % (Auto) 0.0, Absolute Neuts (auto) 4.6, Absolute Lymphs (auto) 0.45 L, Total Counted Not Reportable Clinical Impression(s) from Imaging Studies Renal Ultrasound 02/11/19 14:07 IMPRESSION: No acute abnormalities. Stable right renal cysts. Code Visit Inpatient E&M: 28706 Subs Hosp L3
[2019-02-12] MEDS: Docusate Sodium 100 MG Capsule 200 MG PO (20:30)
[2019-02-12 20:31] VITALS: BP 140/60; PULSE 87; RESP 16; TEMP 36.7; O2SAT 96
[2019-02-12] MEDS: traZODone 50 MG Tablet PO (22:44)
[2019-02-13 02:20] VITALS: BP 152/64; PULSE 89; RESP 16; TEMP 37.6; O2SAT 96
[2019-02-13] MEDS: Levothyroxine 25 MCG TABLET PO (05:17)
[2019-02-13 07:44] VITALS: O2SAT 95
[2019-02-13 09:11] VITALS: BP 132/60; PULSE 79; RESP 18; TEMP 36.8; O2SAT 97
[2019-02-13] MEDS: Fluticasone 0.05% 1 SPRAY NASAL.SRY 2 SPRAY NASAL (09:17)
[2019-02-13] MEDS: Enoxaparin 30 MG/0.3 ML Syringe SC (09:18)
[2019-02-13] MEDS: 0.9% NaCl Peripheral Flush Adult/Peds IV (09:19)
[2019-02-13] MEDS: Pantoprazole Sodium 40 MG Tablet PO (09:19)
[2019-02-13] MEDS: Ceftriaxone 1 GM/50 ML BAG IV (09:20)
--- NOTE | 2019-02-13 11:29 | DCINST_ITS ---
- Discharge Diagnoses Current Active Problems: Current Active and Chronic Problems UTI (urinary tract infection) (Acute) Gram-negative bacteremia (Acute) Recurrent UTI (Chronic) Hypertension (Chronic) History of kidney stone (Chronic) You will use the following diet at home:: Cardiac Your food should be the consistency of: Regular Discharge Activity: May Not Drive Weight Bearing Status: Weight bearing as tolerated Call your doctor if you observe: Fever of 101 or Higher, Coldness, Increased Pain, Numbness or Tingling, Inability to urinate, Inability to have a bowel movement, Shortness of breath, Dizziness, Fainting spells, Swelling in the ankles, Chest pain, Increased palpitations (irregular heartbeat) Additional Instructions: Patient was advised that she might receive phone call if urine culture blood culture not sensitive to the antibiotic cefdinir. Preliminary blood culture is growing gram-negative kishore. We will follow-up repeat blood culture and urine culture done 02/13/2090 Allergies/Adverse Reactions: Allergies ciprofloxacin [From Cipro] Adverse Reaction (Verified 02/11/19 14:22) made me feel funny ciprofloxacin HCl [From Cipro] Adverse Reaction (Verified 02/11/19 14:22) made me feel funny hydrocodone [From [place]] Adverse Reaction (Verified 02/11/19 11:23) MENTAL STATUS CHANGE nitrofurantoin [From Macrobid] Adverse Reaction (Verified 02/11/19 11:23) Upset Stomach Medications to take at Discharge Aspirin E.C. [Ecotrin] 81 mg PO MOFR 05/28/14 Pantoprazole Sodium [Protonix] 40 mg PO DAILY 05/28/14 traZODone [Desyrel] 50 mg PO QHS 05/28/14 Lisinopril [Zestril] 40 mg PO DAILY 12/24/16 Acetaminophen [Tylenol] 650 mg PO Q6H PRN PRN 05/07/18 Fluticasone 0.05% [Flonase Nasal [place]] 2 spray NASAL DAILY 05/07/18 hydroCHLOROthiazide [Hydrochlorothiazide] 12.5 mg PO DAILY 05/07/18 Amlodipine Besylate 5 mg PO DAILY 02/11/19 Cholecalciferol (Vitamin D3) [Vitamin D3] 2,000 unit PO DAILY 02/11/19 Levofloxacin 500 mg PO DAILY 02/11/19 Levothyroxine [Synthroid] 25 mcg PO DAILY 02/11/19 Cefdinir [Omnicef [equiv]] 300 mg PO Q12H #14 cap 02/13/19 Meloxicam [Mobic] 7.5 mg PO DAILY #0 02/13/19 The following prescriptions were given: Cefdinir [Omnicef [equiv]] 300 mg PO Q12H #14 cap Transmission Status: Pending to [facility] Primary Care Physician: Adriano Obrien III, MD [Primary Care Provider] - Please follow up with your Primary Care Physician in: in 1 weeks Test Results: Test results from this visit will be discussed in further detail at your follow- up appointment, if applicable.
--- NOTE | 2019-02-13 12:31 | DS.PCM_ITS ---
Discharge Date and Diagnosis Date of Admission: 02/11/19 Date of Discharge: 02/13/19 - Primary Discharge Diagnosis Active and Suspected Problems UTI (urinary tract infection) (Acute) Gram-negative bacteremia (Acute) - Secondary Discharge Diagnosis Chronic Problems Recurrent UTI (Chronic) Hypertension (Chronic) History of kidney stone (Chronic) Hospital Course and Treatment Summary of Care Provided: [] The patient is a 78 year with multiple comorbidities as listed above has increased perineal pressure, lower back pain, increased frequency and urgency for last 4 days consistent with UTI. The patient has generalized weakness, fever and chills for last 4 days. Patient has gram-negative kishore bacteremia from blood cultures drawn in PCP office on 02/10/2019. Patient denies any history of recent urethral catheterization/instrumentation. 1. UTI/cystitis with gram-negative kishore bacteremia. Pyelonephritis ruled out: Patient has history of kidney stones and had ureteral stone many years ago probably by Dr. Navarrete. Started on IV ceftriaxone and will continue it. Preliminary blood culture from 02/11 shows gram-negative rods. Urine culture shows mixed gram-positive organisms history of contamination. Renal bladder ultrasound shows no acute abnormalities. Stable right renal cyst. Distended urinary bladder volume 52 mL. Normal wall thickness of distended urinary bladder. No demonstrated mass or calculi. The patient is afebrile for more than 48 hours with no tachycardia, tachypnea/hypoxia/leukocytosis or other systemic signs of infection. Patient had low-grade 99.7 Fahrenheit. Blood cultures x1 and urine culture collected. will follow-up the culture. Patient wants to go home. Discharged on 7 more days of cefdinir 300 mg twice daily. 2. Acute kidney injury possible prerenal/UTI infection: Baseline BUN/creatinine 19/1.0 in April 2018. Currently BUN/creatinine 41/1.92. On IV fluid normal saline. BUN/creatinine has improved 34/1.35. Resolved. Hypertension: Blood pressure medications continue. 3. Bilateral lower extremity swelling/edema with varicose vein possible lymphedema: Patient on home medication, amlodipine discontinued. Venous Doppler ordered. Bilateral Michael wrap bandage if DVT negative. 4. Hypothyroidism, GERD: Diffuse degenerative joint disease and anxiety: Home medications continued. DVT prophylaxis: On Lovenox 30 mg, adjusted to creatinine clearance subcu daily. Discharge medication reconciliation done. Discharge follow-up instructions completed. Discharge process discussed with the patient and all questions were answered to patient's satisfaction. Patient wants to go home. Final blood culture and urine culture are pending. Patient was advised to expect to receive call if there is change in final organism growth or if organism is not sensitive to Cefdinir, then antibiotic needs to be changed. She agrees with the plan. We will follow the culture. Patient discharged home. Advised to follow with PCP in 1 week. Total time spent, exact 35 minutes on discharge meds reconciliation, examination, review of imaging and blood test and discussion with the patient on follow-up instructions. Subjective: Seen and examined. Patient did not had high-grade fever since admission more than 48 hours. T-max 99.7. No tachycardia. Blood pressure good. No tachypn ea/hypoxia. Patient wants to go home. - Physical Exam General: Alert, Oriented x3, Cooperative HEENT: Atraumatic, PERRLA, EOMI, Normocephalic Neck: Supple, No JVD, Negative Carotid Bruits Lungs: Clear to auscultation, Normal air movement, No rhonchi, No wheeze, No rales Cardiovascular: Regular rate, Regular Rhythm, Normal S1, Normal S2, No murmurs Abdomen: Bowel Sounds Present, Soft, Non Tender, Non-Distended, - - No renal angle tenderness/suprapubic tenderness. Extremities: No edema, Capillary Refill Less than 3 Seconds Skin: No rashes, No breakdown Musculoskeletal: No Tenderness to Palpation of Joints or Extremities, Arthritic Changes Lymphatic: No Cervical, Supraclavicular, or Inguinal Adenopathy Neurological: Cranial nerves II-XII grossly intact, Deep Tendon Reflexes 2+/4 and Symmetrical, Neuro grossly intact, Motor Exam 5/5 strength throughout Psych/Mental Status: Normal Affect, Appropriate Vital Signs Temp Pulse Resp BP Pulse Ox 98.2 F 79 18 132/60 H 97 02/13/19 09:11 02/13/19 09:11 02/13/19 09:11 02/13/19 09:11 02/13/19 09:11 Oxygen Delivery Method Room Air Weight: 157 lb 10.088 oz Body Mass Index (BMI) 27.0 Intake and Output for Last 24 Hours 02/11/19 02/12/19 02/13/19 23:59 23:59 23:59 Intake Total 3605 / 3605 550 / 550 Output Total 4500 / 4500 1500 / 1500 Balance -895 / -895 -950 / -950 Microbiology Past 72 Hours 02/11/19 11:40 Urine Culture - Final Urine, Clean Catch Mixed Gram Positive Organisms 02/11/19 12:00 Blood Culture - Preliminary Blood Culture (Wb) - Anticubital Left Discharge Activity: May Not Drive Weight Bearing Status: Weight bearing as tolerated Call your doctor if you observe: Fever of 101 or Higher, Coldness, Increased Pain, Numbness or Tingling, Inability to urinate, Inability to have a bowel movement, Shortness of breath, Dizziness, Fainting spells, Swelling in the ankles, Chest pain, Increased palpitations (irregular heartbeat) Home Medications: Medications to take at Discharge Aspirin E.C. [Ecotrin] 81 mg PO MOFR 05/28/14 Pantoprazole Sodium [Protonix] 40 mg PO DAILY 05/28/14 traZODone [Desyrel] 50 mg PO QHS 05/28/14 Lisinopril [Zestril] 40 mg PO DAILY 12/24/16 Acetaminophen [Tylenol] 650 mg PO Q6H PRN PRN 05/07/18 Fluticasone 0.05% [Flonase Nasal [place]] 2 spray NASAL DAILY 05/07/18 hydroCHLOROthiazide [Hydrochlorothiazide] 12.5 mg PO DAILY 05/07/18 Amlodipine Besylate 5 mg PO DAILY 02/11/19 Cholecalciferol (Vitamin D3) [Vitamin D3] 2,000 unit PO DAILY 02/11/19 Levofloxacin 500 mg PO DAILY 02/11/19 Levothyroxine [Synthroid] 25 mcg PO DAILY 02/11/19 Cefdinir [Omnicef [equiv]] 300 mg PO Q12H #14 cap 02/13/19 Meloxicam [Mobic] 7.5 mg PO DAILY #0 02/13/19 Following Prescrptions Were Given to Patient: Cefdinir [Omnicef [equiv]] 300 mg PO Q12H #14 cap Transmission Status: Received by [facility] #30 Primary Care Physician: Adriano Obrien III, MD [Primary Care Provider] - Please follow up with your Primary Care Physician in: in 1 weeks Medical Necessity - Tobacco Use Smoking Status: Never smoker Meaningful Use Info Meaningful Use Diagnoses (Choose all that apply): None applicable Code Visit Inpatient E&M: 65895 Disch Hosp
[2019-02-13 14:04] VITALS: BP 142/77; PULSE 79; RESP 18; TEMP 36.7; O2SAT 97
== END 2019-02-13 14:28 | disposition home or self-care (01) | DRG 690 ==
LOC: ED 12:54 → PCU 13:15
PROVIDERS: Admitting Provider Internal Medicine; Emergency Provider Emergency Medicine; Family Provider Family Medicine; PCP Family Medicine; Referring Provider Internal Medicine; Visit Provider Internal Medicine
DX: N30.90 Cystitis, unspecified without hematuria (principal); N17.9 Acute kidney failure, unspecified; R78.81 Bacteremia; I10 Essential (primary) hypertension; E03.9 Hypothyroidism, unspecified; Z87.442 Personal history of urinary calculi; Z87.440 Personal history of urinary (tract) infections; B96.89 Other specified bacterial agents as the cause of diseases classified elsewhere; N28.1 Cyst of kidney, acquired; M19.90 Unspecified osteoarthritis, unspecified site; K21.9 Gastro-esophageal reflux disease without esophagitis; F41.9 Anxiety disorder, unspecified; I83.93 Asymptomatic varicose veins of bilateral lower extremities
CPT/HCPCS: 36415; 76770; 80048; 80076; 81001; 83605; 84443; 85025; 87040; 87086; 87186; 93970; 97110; 97162; 97166; 97530; 97802; 99285; J7030; A4216

== ENCOUNTER → 2019-04-02 | Outpatient (CLI) | payer MEDICARE, OTHER, SELFPAY ==
[2019-02-11 14:32] VITALS: BMI 27.0
== END | disposition home or self-care (01) ==
LOC: LABSPEC 13:34
PROVIDERS: Family Provider Family Medicine; PCP Family Medicine
DX: N39.0 Urinary tract infection, site not specified (principal)
CPT/HCPCS: 87086; 87088

== ENCOUNTER 2019-12-04 08:23 | Day surgery (SDC) | payer MEDICARE, OTHER, SELFPAY ==
[2019-02-11 14:32] VITALS: BMI 27.0
--- NOTE | 2019-12-03 08:39 | HP.PCM_ITS ---
History and Physical Date of Admission: 12/04/19 Stefanie Krishna 1940 ? ? REFERRING PHYSICIAN: Adriano Obrien III, MD ? CHIEF COMPLAINT: ADH of right breast ? HPI: The patient is a 79 year old female presents with abnormal right breast radiographs with findings of ADH by biopsy. She denies palpable breast masses. She denies nipple discharge. She denies previous breast biopsies. She denies breast pain She has two sisters who have had breast cancer ? Ms. Krishna is s/p right needle core breast biopsy on 11/17/2019 Findings of - ?FINAL DIAGNOSIS Right breast, needle core biopsy - Atypical ductal hyperplasia, in part involving an intraductal papilloma ? Patient states that she has no problems at the biopsy site, has bruising but no swelling, etc. ? ? PAST MEDICAL HISTORY ? Aortic heart murmur 10/26/2011 ? Degenerative disc disease, lumbar 10/22/2014 ? Diverticulosis of colon (without mention of hemorrhage) ? ? Esophageal reflux ? ? Essential hypertension, benign ? ? HYPERTENSION NOS 01/09/2007 ? Hypothyroidism, acquired 03/09/2018 ? Internal hemorrhoids without mention of complication ? ? Left-sided low back pain with left-sided sciatica 10/29/2015 ? Obesity, unspecified ? ? Obstructive sleep apnea (adult) (pediatric) ? ? EBENEZER (obstructive sleep apnea) 02/19/2017 ? CPAP 6 cm ? Osteoarthritis, knee 11/01/2010 ? Other and unspecified hyperlipidemia ? ? Recurrent UTI (urinary tract infection) 10/25/2017 ? Unilateral primary osteoarthritis, left knee ? ? Vaginal atrophy 10/25/2017 ? Venous insufficiency of leg 11/01/2010 ? PAST SURGICAL HISTORY ? COLONOSCOP W/ OR W/O BRSH SPEC ? 10/25/2004 ? Colonoscopy-repeat in ? COLONOSCOP W/ OR W/O BRSH SPEC ? 06/08/14 ? Colonoscopy ? EGD W/O OR W/BRUSH/WASH ? ? ? EGD ? EGD W/O OR W/BRUSH/WASH ? 06/08/14 ? EGD ? LAPAROSCOPIC CHOLEYCYSTECTOMY ? 04/27/2005 ? Cholecystectomy, lap ? LIGATE FALLOPIAN TUBE ? ? ? Tubal ligation ? PAST SURGICAL HISTORY OF ? 11/2007 -12/2007 ? bilateral catract removal [facility]. ? TOTAL KNEE REPLACEMENT Left 08/02/2017 ? [facility] ? ? Current Outpatient Medications ? OTC NUTRITIONAL SUPPLEMENT Take by mouth once daily. D-Mannose powder daily for urinary symptoms ? amoxicillin (AMOXIL) 875 mg tablet Take 1 tablet by mouth twice daily for 10 days. ? Hydrochlorothiazide 12.5 mg capsule Take 1 capsule by mouth once daily. ? meloxicam (MOBIC) 15 mg tablet Take 1 tablet by mouth once daily. With food. ? Comp Stocking,Knee,Regular,Sml (T.E.D. ANTI-EMBOLISM STOCKING) misc 2 Each once daily. ? lisinopril (ZESTRIL, PRINIVIL) 40 mg tablet Take 1 tablet by mouth once daily. ? amLODIPine (NORVASC) 5 mg tablet Take 1 tablet by mouth once daily. ? pantoprazole DR (PROTONIX) 40 mg tablet Take 1 tablet by mouth once daily. Take on empty stomach, 1/2 hr before meal. ? levothyroxine (LEVOXYL) 25 mcg tablet Take 1 tablet by mouth once daily. Take on empty stomach. For Thyroid ? traZODone (DESYREL) 50 mg tablet TAKE 1/2 (ONE-HALF) TO 1 (ONE) TABLET BY MOUTH AT BEDTIME ? Cholecalciferol, Vitamin D3, 2,000 unit cap Take 1 capsule by mouth once daily. ? acetaminophen (TYLENOL) 325 mg tablet Take 650 mg by mouth every 6 hours as needed. ? fluticasone (FLONASE) 50 mcg/actuation nasal spray Use 2 Sprays in each nostril once daily. Rinse mouth after use. ? aspirin, enteric coated (ECOTRIN LOW STRENGTH) 81 mg EC tablet one tablet every Mon--Fri ? ? ALLERGIES: Cipro [Ciprofloxacin]; Macrobid [Nitrofurantoin Monohyd/M-Cryst]; Shirley [Hydrocodone-Acetaminophen]; Pravastatin; Zocor [Simvastatin] ? PERSONAL HISTORY: ? Smoking status: Never Smoker ? Smokeless tobacco: Never Used Substance Use Topics ? Alcohol use: No ? ? Frequency: Never ? ? Binge frequency: Never ? Drug use: No ? FAMILY HISTORY ? Hypertension Mother ? ? Hypertension Father ? ? Diabetes Brother ? ? Diabetes Sister ? ? Breast Cancer Sister ? ? Cancer Sister ? ? unknown origin ? REVIEW OF SYSTEMS: General: The patient notes fatigue, denies weight loss, denies weight gain, denies feeling hot, and notes feelings of cold. Eyes: The patient denies glaucoma, notes eye injury/surgery, wears glasses or contacts. Ear/Nose/Throat: The patient denies allergies, denies hayfever, denies ear infections, and denies bloody noses. Cardiovascular: The patient denies chest pain, denies heart disease, notes high blood pressure,denies cardiac stent, denies prior heart attack, notes irregular heart beat, notes high cholesterol, notes poor circulation, denies heart failure, other cardiac issues, denies claudication, notes cold feet, denies peripheral arterial stent. Respiratory: The patient denies tuberculosis, denies pneumonia, denies frequent cough, denies pulmonary embolism, denies shortness of breath, and denie s coughing up blood. Gastrointestinal: The patient denies difficulty swallowing, notes acid reflux, denies ulcers, denies vomiting, denies jaundice/hepatitis, denies gallbladder problems, denies black or tarry stools, denies hemorrhoids, denies bleeding from rectum, notes diverticulitis, notes constipation, denies diarrhea, denies loss of stool control, and denies hernias. Kidney/Bladder: The patient notes kidney stones, notes urine infections, and denies bloody urine. Skin: The patient notes a history of skin cancer, denies bleeding/changing moles, and denies a history of skin rash. Neurologic: The patient denies a history of epilepsy/convulsions, denies headaches, denies head/spinal injuries, and denies stroke/TIA. Psychiatric: The patient denies psychiatric medications, denies depression, and denies voices, denies substance abuse. Endocrine: The patient notes thyroid disorders, denies diabetes, and denies hormonal problems. Hematologic: The patient notes a history of bruising, denies bleeding, and denies anemia, denies blood clots. Infections: The patient notes a history of measles and mumps, notes rheumatic fever, and denies sexually transmitted diseases. Musculoskeletal: The patient notes back pain/injury, notes back problems, notes sciatica, notes knee/foot trouble, notes arthritis, or denies gout. Obstetrical: menarche 10, , first at age 16, breast feeding denies, BCP use mid 20s for several years ? PHYSICAL EXAMINATION: General: The patient is 79 year old female, well nourished, well hydrated in no acute distress. The patient is oriented to time, place, and person. VITALS: Blood pressure 122/54, pulse 80, temperature 36.2 ?C (97.2 ?F), temperature source Temporal Artery, weight 73 kg (161 lb), SpO2 98 %. Body mass index is 27.64 kg/m?. Head ? Normocephalic. EOM intact with sclera clear and no icterus noted. Wearing glasses. Mouth with mucus membranes moist. Neck - supple with no jugular venous distention noted. Trachea is midline. No carotid bruits noted. No thyroid enlargement or thyroid nodules detected. No masses noted. Chest/breast ? no asymmetry of breasts noted, no suspicious skin lesions noted - has numerous keratotic skin lesions - well healed biopsy site, no nipple discharge and both nipples everted, no breast masses noted Lungs ? clear to auscultation. Normal breath sounds. No rales/rhonchi/wheezing noted. No labored breathing noted, such as retractions. No cough heard. Heart ? normal S1 and S2 auscultated. Grade 2/6 systolic murmur noted. No rubs/clicks noted. Regular rate. Abdomen ? soft and benign. Normal bowel sounds No abdominal bruits noted. Extremities ? no calf tenderness noted. Has venous varicosities, has bilateral lower extremity dependent swelling. Skin ? normal skin integrity. Lymph ? no cervical adenopathy detected, no supraclavicular adenopathy detected, no axillary adenopathy detected Neurological ? gait normal, no focal deficits noted Psych ? calm and appropriate ? IMPRESSION: atypical ductal hyperplasia of right breast with family history of breast cancer ? PLAN: I have discussed the above with the patient. I have explained to her that she will require open wire localization right breast biopsy. I have explained the procedure to her. I have counseled the patient as to the risks of the procedure, including but not limited to:infection, bleeding, injury to any blood vessels/nerves, scar tissue, wound infections, inability to locate marker clip, need for further surgery should malignancy be found, complications of anesthesia, etc. ? the patient understands. The patient wishes to proceed. I have answered all questions to the patient?s satisfaction and the patient has no further questions.
[2019-12-03] MEDS: Cefazolin 2 GM in 0.9% Normal Saline 100 ML IV (09:58)
--- NOTE | 2019-12-04 08:30 | BI_ITS ---
SURGICAL BREAST SPECIMEN RADIOGRAPH CLINICAL: Document presence of tissue clip marker in biopsy specimen. FINDINGS: Specimen shows presence of tissue clip marker. Electronically Signed: Fredrick Hester, at 11:20 EDT , Service support , BI/Breast Biopsy Specimen
[2019-12-04 08:48] VITALS: BP 138/49; PULSE 71; RESP 16; TEMP 36.9; O2SAT 98; BMI 28.4
[2019-12-04] MEDS: Lactated Ringers 1,000 ML 75 ML IV (09:11)
--- NOTE | 2019-12-04 09:54 | PCM.DC.BS ---
Discharge Diet: No Restrictions Discharge Activity: Return to Normal Activity, May not drive while taking narcotic pain medications. Call your doctor if your incision/area has: Continuous Slow Oozing, Foul Smelling Discharge Call your doctor if you observe: Fever of 101 or Higher Additional Dressing/Incision Instructions:: Leave dressings in place. May get wet in shower. Do not soak - no tub baths/swimming Additional Instructions: Wearing a comfortable supportive bra during the day, may apply ice packs to area Allergies/Adverse Reactions: Allergies adhesive tape Adverse Reaction (Verified 12/03/19 10:24) Rash ciprofloxacin [From Cipro] Adverse Reaction (Verified 12/03/19 10:23) made me feel funny ciprofloxacin HCl [From Cipro] Adverse Reaction (Verified 12/03/19 10:23) made me feel funny hydrocodone [From [place]] Adverse Reaction (Verified 12/03/19 10:23) MENTAL STATUS CHANGE nitrofurantoin [From Macrobid] Adverse Reaction (Verified 12/03/19 10:23) Upset Stomach Medications to take at Discharge RX: Aspirin E.C. [Ecotrin] 81 mg PO MOFR 05/28/14 RX: Pantoprazole Sodium [Protonix] 40 mg PO DAILY 05/28/14 RX: traZODone [Desyrel] 50 mg PO QHS 05/28/14 RX: Lisinopril [Zestril] 40 mg PO DAILY 12/24/16 RX: Acetaminophen [Tylenol] 650 mg PO Q6H PRN PRN 05/07/18 RX: Fluticasone 0.05% [Flonase Nasal [place]] 2 spray NASAL DAILY 05/07/18 RX: hydroCHLOROthiazide [Hydrochlorothiazide] 12.5 mg PO DAILY 05/07/18 RX: Amlodipine Besylate 5 mg PO DAILY 02/11/19 RX: Cholecalciferol (Vitamin D3) [Vitamin D3] 2,000 unit PO DAILY 02/11/19 RX: Levothyroxine [Synthroid] 25 mcg PO DAILY 02/11/19 RX: Meloxicam [Mobic] 15 mg PO DAILY 12/03/19 Oxycodone [Oxyir] 5 mg PO Q12H PRN PRN 2 Days #4 tab 12/04/19 The following prescriptions were given: Oxycodone [Oxyir] 5 mg PO Q12H PRN PRN 2 Days #4 tab PRN Reason: Pain Score 6-10/10 Transmission Status: Received by [id number] Primary Care Physician: Adriano Obrien III, MD [Primary Care Provider] - Please Follow Up With: Maki Hung MD - When: to be arranged by office for televisit, will call patient with results
--- NOTE | 2019-12-04 10:00 | BRBX_PTH ---
PATIENT: LESIA TAN [place] [facility] [id number] AGE/SX: 79/F ROOM: RE12/04/[address]: Dr. Maki Hung MD : 1940 BED: DIS: 12/04/2019 SPEC #: [id number] RECD: 12/04/19 10:46 STATUS: JOSE RENeli #: [id number] IMELDA: 12/04/19 10:[address]: Maki Hung DEPT: SURGICAL PATHOLOGY RECD BY: Edward Rosales ENTERED: 12/05/19 11:00 SP TYPE: BREAST BX OTHR DR: Dr. Adriano Obrien III, MD Tissues: Right breast, NOS Procedures: Surgery Specimen Level V HEADER OPERATION: Needle localized right breast biopsy PRE-OP DIAGNOSIS: Atypical ductal hyperplasia of right breast TISSUE SUBMITTED: Right breast tissue MICROSCOPIC DIAGNOSIS Right breast, lumpectomy: Focal intraductal hyperplasia with minimal atypia. Changes of previous biopsy. Fibrocystic change. No evidence of malignancy. Vessel sow with calcific change. AM:kayce 12/10/19 COMMENT This case was reviewed and diagnosis discussed with Dr. Hung on 12/10/19 at 10:23 a.m. Case has been reviewed in consultation with Dr. Toro who concurs with the above diagnosis. SIENNA:CLAUDIO MICROSCOPIC DESCRIPTION Slides are reviewed. GROSS DESCRIPTION Received fresh and postfixed in formalin is one container labeled with the patient's name and designated right breast biopsy tissue. The specimen consists of an unoriented piece of fibroadipose tissue with needle localization measuring 6 x 3.5 x 2 cm. The specimen is inked, serially sectioned and reveals focal fibrous area in the central portion of the specimen. No obvious mass lesion is identified. The entire specimen is submitted in 12 cassettes from one end to another end. Sections will be submitted after additional fixation. / CLAUDIO:kayce 12/05/19 TC:5 [facility]: [id number]
[2019-12-04] MEDS: Bupiv/Epi 0.25% 30 ML Vial (10:50)
--- NOTE | 2019-12-04 10:51 | OP.PCM_ITS ---
Report of Operation Date of Procedure: 12/04/19 Pre-Operative Diagnosis: atypical ductal hyperplasia Post-Operative Diagnosis: same Surgery/Procedure Performed:: right wire localization breast biopsy Description of Surgical Findings:: fibrocystic type breast tissue, lesion in lower outer quadrant, near nipple/areolar complex Type of Anesthesia:: Local MAC Anesthesiologist: Jason Espinal Specimen's removed: right breast tissue Estimated Blood Loss (mL): minimal Fluids Replaced: 600 ml Description of Procedure: After informed consent was given, the patient was brought into the Breast Stereotactic Radiology suite. Appropriate time out protocol was followed. She was then placed in the prone position on the [place] stereotactic table. The patient?s right breast was placed in the opening at the head of the table. A domestic laundry worker compression mammogram was then obtained in the lateral view. The marker clip that was previously placed was identified. Stereo pictures of the lesion were then taken for XYZ coordinates. The Kopans needle was then positioned where it would be entering into the patient?s breast. The skin at this site was then cleansed with a surgical skin preparation. The skin and subcutaneous tissues at this site were then infiltrated with 1% xylocaine. The Kopans needle was then positioned into the patient?s breast at the proper coordinates of depth. A domestic laundry worker film was obtained which revealed the wire in proper position. The patient was then placed in the supine position and the wire was taped into place. A unilateral mammogram in the CC and MLO view were then taken for use in the OR. The patient tolerated this portion of the procedure well and was brought to the AC awaiting surgery in the OR. The patient was then brought to the Operating Room. Appropriate time out protocol was followed. She was then placed on the operating table in the supine position. A wire had already been placed in the stereotactic biopsy room in the radiology department as described above. The right breast with the wire in placed was then prepped with a sterile surgical skin preparation and sterile surgical drapes were placed. The skin and subcutaneous tissues at the site of the breast lesion was then infiltrated with 1% xylocaine with epinephrine. A transverse curvilinear skin incision was then made with a 15 blade scalpel near the nipple areolar complex in the lower outer quadrant of the right breast. It was carried down through to the subcutaneous tissues. Hemostasis was controlled with electrocautery. The wire was then palpated out. The breast tissue surrounding the wire was then carefully palpated out and from the surrounding tissues using electrocautery. The breast tissue, once from the breast, was then forwarded to the radiology department, where a specimen mammogram revealed that the marker clip was within the specimen. The breast tissue was then forwarded to pathology for analysis. The wound cavity was carefully examined. No further suspicious tissue was palpated or visualized. Hemostasis was carefully controlled with electrocautery. The subdermal tissues were then approximated with vicryl suture. The incision was then reapproximated close using running monocryl suture. Cavilon and steristrips were then placed to reinforce the skin closure. A sterile dressing was then applied. The patient was then brought to the Recovery Room in stable condition. - Complications none noted - Admit VTE Documentation VTE Present on Admission: Yes VTE Mechan Device Prophylaxis: SCD's
[2019-12-04 11:00] VITALS: BP 122/52; BP 138/49; PULSE 72; RESP 16; TEMP 36.4; O2SAT 96
[2019-12-04 11:05] VITALS: BP 126/52; BP 138/49; PULSE 73; RESP 16; O2SAT 95
[2019-12-04 11:10] VITALS: BP 118/63; BP 138/49; PULSE 72; RESP 16; O2SAT 96
[2019-12-04 11:15] VITALS: BP 123/56; BP 138/49; PULSE 70; RESP 16; TEMP 36.3; O2SAT 98
[2019-12-04 11:46] VITALS: BP 138/49
== END 2019-12-04 12:03 | disposition home or self-care (01) ==
LOC: SDC 08:27 → AC 08:28
PROVIDERS: PCP Family Medicine; Referring Provider Surgery; Visit Provider Surgery
PROC: (CPT 19125; principal; 2019-12-04 09:45)
DX: N60.91 Unspecified benign mammary dysplasia of right breast (principal); N60.11 Diffuse cystic mastopathy of right breast; K21.9 Gastro-esophageal reflux disease without esophagitis; I10 Essential (primary) hypertension; E03.9 Hypothyroidism, unspecified; E66.9 Obesity, unspecified; Z68.27 Body mass index [BMI] 27.0-27.9, adult; E78.00 Pure hypercholesterolemia, unspecified; G47.33 Obstructive sleep apnea (adult) (pediatric); M17.12 Unilateral primary osteoarthritis, left knee; F41.9 Anxiety disorder, unspecified; Z86.2 Personal history of diseases of the blood and blood-forming organs and certain disorders involving the immune mechanism; Z78.0 Asymptomatic menopausal state; Z87.19 Personal history of other diseases of the digestive system; Z87.440 Personal history of urinary (tract) infections; Z85.828 Personal history of other malignant neoplasm of skin; Z79.899 Other long term (current) drug therapy; Z79.82 Long term (current) use of aspirin
CPT/HCPCS: 00400; 19125; 19281; 76098; 88307; J7050; J7120; A4216; J2405

== ENCOUNTER 2020-09-03 10:03 | Outpatient (RCR) | payer MEDICARE, OTHER, SELFPAY | END 2020-09-03 23:59 | LOC: IMMUN 10:03 | PROVIDERS: PCP Family Medicine; Visit Provider Family Medicine | DX: Z23 Encounter for immunization (principal) | CPT/HCPCS: 0011A; 0012A; 91301 ==

== ENCOUNTER → 2021-01-13 09:25 | Outpatient (CLI) | payer MEDICARE, OTHER, SELFPAY ==
--- NOTE | 2021-01-13 09:30 | STE_ITS ---
Reason For Study: Dyspnea Stress Results Protocol: Dobutamine Stress Echo Maximum Predicted HR: 138 bpm Target HR: 117 bpm % Maximum Predicted HR: 104 % Heart Stage Duration Rate BP Comment (mm:ss) (bpm) Baseline 71 123/62No Chest Pain DSE 10 MCG 3:23 72 140/69No Chest Pain DSE 20 MCG 3:00 83 143/63No Chest Pain DSE 30 MCG 3:00 105 148/58No Chest Pain DSE 40 No Chest Pain; 10:15 Atropine 0.25 MG IVP; 12:10 Atropine 0.25 MG MCG 4:06 144 157/56IVP Recovery 92 138/69No Chest Pain; Headache for 4 Minutes-Resolved Stress Duration: 13:29 mm:ss Maximum Stress HR: 144 bpm METS: 1 Baseline Echocardiogram Findings The estimated ejection fraction is 65 %. Post stress EF is > 75%. Mobile echodensity noted in the LV. Consider Cardiac MRI to evaluate this further. Mild (1+) aortic valve insufficiency. Mild aortic stenosis. Trisinus/trileaflet aortic valve. Mild diffuse aortic valve thickening. Stress Echo Wall motion Data Resting WM Intermediate WM Stress WM Resting Wall Motion Wall Motion Int. Wall Motion Stress No regional wall motion No regional wall motion No regional wall motion abnormalities noted. abnormalities noted. abnormalities noted. EKG Data The baseline ECG displays normal sinus rhythm. No ischemic changes. Symptoms with Stress The patient experinced no chest pain . MMode/2D Measurements & Calculations LVOT diam: 2.0 cm LVOT area: 3.1 cm2 Doppler Measurements & Calculations Ao V2 max: 286.9 cm/sec LV V1 max: 124.5 cm/sec SV(LVOT): 101.8 ml Ao max P.9 mmHg LV V1 max P.2 mmHg Ao V2 mean: 202.1 cm/sec LV V1 mean P.8 mmHg Ao mean P.0 mmHg LV V1 mean: 92.1 cm/sec Ao V2 VTI: 70.6 cm LV V1 VTI: 33.1 cm VINCE(I,D): 1.4 cm2 VINCE(V,D): 1.3 cm2 ECHO/Stress Test Echo w/o Contrast Interpretation Summary The estimated ejection fraction is 65 %. Mild aortic stenosis. Mild (1+) aortic valve insufficiency. Dobutamine stress echo is negative for dobutamine infusion induced CP or EKG or Echocardiographic changes of ischemia Mobile echodensity noted in the LV. Consider Cardiac MRI to evaluate this furth er. Ordering Physician: Nereida Valdez Referring Physician: Sydnie Gupta Performed By: Kelsea Fuentes RDCS
== END ==
PROVIDERS: PCP Internal Medicine; Referring Provider Internal Medicine; Visit Provider Internal Medicine
DX: R06.02 Shortness of breath (principal)
CPT/HCPCS: 93017; 93350; J7040; A4216

== ENCOUNTER 2021-06-09 07:15 | Emergency (ER) | payer MEDICARE, OTHER, SELFPAY ==
[2021-06-09 07:17] VITALS: BP 138/53; PULSE 74; RESP 16; TEMP 36.3; O2SAT 97; BMI 26.8
--- NOTE | 2021-06-09 07:46 | EKG12_ITS ---
Test Reason : VOMITING Blood Pressure : / mmHG Vent. Rate : 070 BPM Atrial Rate : 070 BPM P-R Int : 154 ms QRS Dur : 086 ms QT Int : 410 ms P-R-T Axes : 017 038 061 degrees QTc Int : 442 ms Sinus rhythm with Premature supraventricular complexes Otherwise normal ECG Confirmed by KEYSHA HINOJOSA, LIZBETH ([id number]), content editor RICARDO RANDALL ([id number]) on 06/15/2021 8:56:40 AM Referred By: ELSA Confirmed By:LIZBETH CHOPRA MD
--- NOTE | 2021-06-09 07:46 | RAD_ITS ---
STUDY: X-RAY CHEST REASON FOR EXAM: Female, 80 years old. Shortness of breath. TECHNIQUE: PA and lateral views of the chest. COMPARISON: None. FINDINGS: EKG electrodes are seen. The lungs are clear and expanded. There is no demonstrated pleural abnormality. Normal size heart. Normal mediastinum and ailin. Normal visualized pulmonary arteries. There is atherosclerotic calcification of the aortic arch with tortuosity. There are degenerative changes of the visualized thoracic spine. Normal visualized ribs, clavicles, and shoulders. There is no demonstrated abnormality of the visualized soft tissue structures of the upper abdomen. RAD/Chest PA and Lateral IMPRESSION: No acute abnormality is seen. Electronically Signed: Fredrick Hester MD at 8:33 EDT , Service support ,
--- NOTE | 2021-06-09 07:51 | EX.ED.DYSGE1 ---
HPI History of Present Illness Chief Complaint: Nausea/Vomiting Informant: patient Narrative Narrative: Patient is an 80-year-old female history of hypertension, recurrent UTIs and 1 month of foreign body sensation in her throat and difficulty swallowing presenting after an episode of perioral numbness. Patient states she woke up around 4 AM because the medicine she took last night refluxed. She states she normally wakes up at 5 AM. She then suddenly started felt smothered and hot. She was very anxious and felt short of breath and got tingling around her mouth. Remember no she is breathing very quickly. She had episode of vomiting as well. She currently notes all her symptoms have improved and she is feeling much better. She is never anything like this before. She denies any history of anxiety. She has recent fevers, chest pain or other symptoms. She is currently being worked up for this foreign body sensation in her throat and recently had what sounds like a barium swallow. She is not had EGD. She was put on a medication and feels that it is helped slightly. Has been having intermittent constipation but denies any associated pain at this time. [facility] Medical History DDD (degenerative disc disease) Eczema GERD (gastroesophageal reflux disease) HLD (hyperlipidemia) HTN (hypertension) Hypothyroid Insomnia EBENEZER (obstructive sleep apnea) Osteoarthritis Vitamin D deficiency Home Medications aspirin 81 mg PO MOFR 05/28/14 [History Last Taken 02/10/19] pantoprazole 40 mg PO DAILY 05/28/14 [History Last Taken 12/04/19 07:00 40 MG] trazodone 50 mg PO QHS 05/28/14 [History Last Taken 02/10/19] lisinopril [Zestril] 40 mg PO DAILY 12/24/16 [History Last Taken 12/04/19 07:00 40 MG] acetaminophen [Tylenol] 650 mg PO Q6H PRN PRN 05/07/18 [History Last Taken 02/10/19] fluticasone propionate 2 spray NASAL DAILY 05/07/18 [History Last Taken 02/04/19] hydrochlorothiazide 12.5 mg PO DAILY 05/07/18 [History Last Taken 02/11/19] amlodipine 10 mg PO DAILY 02/11/19 [History Last Taken 12/04/19 07:00 5 MG] cholecalciferol (vitamin D3) 2,000 unit PO DAILY 02/11/19 [History Last Taken 02/11/19] levothyroxine 25 mcg PO DAILY 02/11/19 [History Last Taken 02/11/19] meloxicam 15 mg PO DAILY 12/03/19 [History Last Taken Unknown] cephalexin 500 mg PO Q12H #10 cap 06/09/21 [Rx Last Taken Unknown] cyclobenzaprine 10 mg PO TID PRN 06/09/21 [History Last Taken Unknown] furosemide 20 mg PO BID 06/09/21 [History Last Taken Unknown] gabapentin 100 mg PO TID PRN 06/09/21 [History Last Taken Unknown] rosuvastatin 5 mg PO DAILY 06/09/21 [History Last Taken Unknown] Allergy/AdvReac Type Severity Reaction Status Date / Time pravastatin Allergy Other Verified 06/09/21 07:17 simvastatin [From Zocor] Allergy Other Verified 06/09/21 07:17 adhesive tape AdvReac Rash Verified 12/03/19 10:24 ciprofloxacin [From Cipro] AdvReac made me Verified 12/03/19 10:23 feel funny ciprofloxacin HCl AdvReac made me Verified 12/03/19 10:23 [From Cipro] feel funny hydrocodone [From [place]] AdvReac MENTAL Verified 12/03/19 10:23 STATUS CHANGE nitrofurantoin AdvReac Upset Verified 12/03/19 10:23 [From Macrobid] Stomach Surgical History History of total left knee replacement Social History Smoking Status: Never smoker ROS ROS ED Constitutional Constitutional ED: Reports sweats; Denies chills or fever(s) ENT ENT ED: Denies ear pain, rhinorrhea or sore throat Cardiovascular Cardiovascular: Denies chest pain or palpitations Respiratory/Chest Respiratory/Chest: Reports dyspnea; Denies cough or dyspnea on exertion Gastrointestinal Gastrointestinal: Reports nausea and vomiting; Denies abdominal pain or diarrhea Genitourinary Genitourinary ED: Denies dysuria Musculoskeletal Musculoskeletal: Denies arthralgias or myalgias Integumentary Denies rash Neurologic Neurologic: Reports paresthesias; Denies headache(s) or weakness Psychiatric Psychiatric: Reports anxiety; Denies depression EXAM Physical Exam Const Vital Signs: 06/09/21 07:17 Temperature 97.3 F L Temperature Source Oral Pulse Rate 74 Respiratory Rate 16 Blood Pressure 138/53 H Blood Pressure Mean 81 Pulse Ox 97 Oxygen Delivery Method Room Air Positive well nourished and well developed General Appearance ED: well developed HEENT Reports TM's clear and moist mucous membranes HEENT Narrative: Oropharynx on exam is normal. No pooling of secretions. Normal phonation. Tympanic Membrane ED: Yes TM's clear Eyes PERRL and EOMs intact bilaterally Neck supple and no JVD Chest Wall inspection of chest normal Resp normal respiratory effort and clear to auscultation bilaterally Cardio regular rate, regular rhythm and no murmurs GI normal to inspection, nondistended, normoactive bowel sounds Extremity normal to inspection General Extremety ED: Negative for tenderness Neuro oriented x3 and no sensory deficits noted Sensorium / Orientation: alert Motor Exam: Negative for general weakness Skin no rashes or lesions noted and no wounds MDM MDM MDM Narrative Medical decision making narrative: Facility of perioral numbness and breathing fast. She did have an episode of vomiting associated with this. Her symptoms have since resolved. Patient appears nontoxic no acute distress. She is hemodynamically stable. She has been having this ongoing issue with difficulty swallowing in the past month but has been able to tolerate liquids. She does not clinically appear dehydrated. Presentation sounds consistent with hyperventilation and secondary perioral paresthesias however given patient's age and comorbidity did check other labs to make sure she does not have any significant electrolyte abnormality or signs of ACS. Work-up is largely negative. She has chronic kidney disease and her creatinine is stable at 1.96. She has mild hyponatremia of 135 is that she is given 500 cc fluid bolus. Urinalysis is consistent with UTI with 500 leukoesterase and 25-10 white blood cells as well as 2+ bacteria. Urine culture sent and she started on Keflex. Patient will be referred to GI for her ongoing dysphagia. Patient is counseled on signs and symptoms requiring return to the emergency room. Patient verbalizes agreement and understand this plan. Patient discharged home in stable and improved condition. Lab Data Attestation: I reviewed the patient's lab results. Labs: Laboratory Results - last 24 hr 10/06/09/21 06/09/21 07:25 07:25 08:14 WBC 5.8 RBC 3.88 L Hgb 11.6 L Hct 34.7 L MCV 89.4 MCH 29.9 MCHC 33.4 RDW Std Deviation 44.9 H RDW Coeff of Bria 13.6 Plt Count 215 MPV 9.9 Immature Gran % (Auto) 0.300 Neut % (Auto) 68.4 Lymph % (Auto) 22.3 [place] % (Auto) 7.0 Eos % (Auto) 1.7 Baso % (Auto) 0.3 Absolute Neuts (auto) 3.9 Absolute Lymphs (auto) 1.28 Nucleated RBC % 0 Sodium 135 L Potassium 3.6 Chloride 97 L Carbon Dioxide 29.0 Anion Gap 9 BUN 47 H Creatinine 1.96 H Estim Creat Clear Calc 19.11 Est GFR (MDRD) Af Amer 31 L Est GFR (MDRD) Non-Af 26 L BUN/Creatinine Ratio 24.0 H Glucose 126 H Calcium 9.6 Total Bilirubin 0.50 AST 18 ALT 20 Alkaline Phosphatase 83 Troponin I High Sens 8 Total Protein 7.8 Albumin 4.2 Globulin 3.6 Albumin/Globulin Ratio 1.2 Lipase 164 Urine Color Yellow Urine Clarity Sl. Cloudy Urine pH 7.0 Ur Specific [place] 1.005 Urine Protein Negative Urine Glucose (UA) Normal Urine Ketones Negative Urine Occult Blood 150 H Urine Nitrite Negative Urine Bilirubin Negative Urine Urobilinogen Normal Ur Leukocyte Esterase 500 H Urine RBC 0-5 SEEN Urine WBC 25-50 SEEN Ur Squamous Epith Cells 5-10 SEEN Urine Bacteria 2+ Urine Mucus RARE Radiography Chest X-Ray - ED: 2 View, Read by ED Physician, Read by Radiologist and Normal Diagnostic Testing: Clinical Impression(s) from Imaging Studies Chest X-Ray 06/09/21 07:46 IMPRESSION: No acute abnormality is seen. Electronically Signed: Fredrick Hester MD at 8:33 EDT , Service support , Rhythm Strip Rhythm Strip: Sinus Rhythm Rate: 70 Ectopy: None EKG Initial EKG: Attestation: I personally reviewed and interpreted this EKG as follows: Interpretation: Sinus Rhythm Comments: Normal sinus rhythm with arrhythmia Rate of 70 Normal axis Normal intervals Normal ST segments Compared to prior EKG on 04/25/2005 no significant changes Discharge Plan Triage Chief Complaint: Nausea/Vomiting ED Provider: Shilpa Muñoz Dx/Rx/DC Orders Clinical Impression: UTI (urinary tract infection), Perioral numbness, Vomiting Instructions: ED CYSTITIS Female Adult, ED Dysphagia (Adult) Prescriptions: New cephalexin 500 mg capsule 500 mg PO Q12H Qty: 10 RF: 0 No Action trazodone 50 MG tablet 50 mg PO QHS RF: 0 aspirin 81 MG tablet 81 mg PO MOFR RF: 0 pantoprazole 20 MG tablet 40 mg PO DAILY RF: 0 lisinopril [Zestril] 10 MG tablet 40 mg PO DAILY RF: 0 hydrochlorothiazide 12.5 MG capsule 12.5 mg PO DAILY RF: 0 fluticasone propionate 1 SPRAY spray,suspension 2 spray NASAL DAILY RF: 0 acetaminophen [Tylenol] 325 MG capsule 650 mg PO Q6H PRN PRN (Reason: Pain) RF: 0 amlodipine 5 MG tablet 10 mg PO DAILY RF: 0 levothyroxine 25 MCG tablet 25 mcg PO DAILY RF: 0 cholecalciferol (vitamin D3) 2,000 UNIT capsule 2,000 unit PO DAILY RF: 0 meloxicam 15 MG tablet 15 mg PO DAILY RF: 0 cyclobenzaprine 10 mg tablet 10 mg PO TID PRN (Reason: Pain) RF: 0 furosemide 20 mg tablet 20 mg PO BID RF: 0 gabapentin 100 mg capsule 100 mg PO TID PRN (Reason: sciatica) RF: 0 rosuvastatin 5 mg tablet 5 mg PO DAILY RF: 0 Primary Care Provider: Nereida Valdez Referrals: Nereida Valdez MD [Primary Care Provider] - Jamari Can DO [STAFF PHYSICIAN] - As soon as possible Disposition Disposition: Home, Self Care
[2021-06-09 08:01] LABS: Absolute Lymphocyte Count 1.28 X10^3/uL (0.83-4.51); Absolute Neutrophil Count 3.9 X10^3/uL (2.0-7.7); Basophil# 0.02 X10^3/uL; Basophil% 0.3 % (0-1); Eosinophils% 1.7 % (0-5); Hematocrit 34.7 % (37-47); Hemoglobin 11.6 g/dL (12.0-15.0); Lymphocyte # 1.28 X10^3/ul (0.83-4.51); Lymphocyte % 22.3 % (19-41); Mean Corp Hgb Conc 33.4 g/dL (32-36); Mean Corpuscular Hgb 29.9 pg (27.0-32.0); Mean Corpuscular Volume 89.4 fL (81-99); Mean Platelet Vol. 9.9 fl (6.2-12.0); NRBC Flagged by Analyzer 0 % (0-5); Neutrophil # 3.93 X10^3/uL (2.7-7.7); Neutrophil % 68.4 % (47-70); Platelet Count 215 K/mm3 (150-450); RBC Distribution Width CV 13.6 % (11.6-14.6); RBC Distribution Width SD 44.9 fl (35.1-43.9); Red Blood Count 3.88 M/mm3 (4.2-5.4); White Blood Count 5.8 K/mm3 (4.4-11.0)
[2021-06-09 08:18] LABS: ALB/GLOB Ratio 1.2 RATIO (0.9-2.4); AST(SGOT) 18 U/L (15-37); Alanine Aminotransfer ALT/SGPT 20 U/L (13-56); Albumin, Serum 4.2 g/dL (3.2-5.0); Alkaline Phosphatase 83 U/L (45-117); Anion Gap 9 (5-15); BUN 47 mg/dL (7-18); Calcium,Total 9.6 mg/dL (8.5-10.1); Chloride 97 mmol/L (98-107); Creatinine, Serum 1.96 mg/dL (0.55-1.02); EST Glomerular Filtration Rate 26 mL/min (>60); Est Glom Filt Rate - Afr Amer 31 mL/min (>60); Estimated Creatinine Clearance 19.11 ml/min; Globulin 3.6 g/dL (2.2-4.2); Glucose 126 mg/dL (74-106); Lipase 164 U/L (73-393); Potassium 3.6 mmol/L (3.5-5.1); Protein, Total 7.8 g/dL (6.4-8.2); Sodium Level 135 mmol/L (136-145); Troponin-I HS 8 pg/mL (3.0-54.0)
[2021-06-09 08:25] LABS: Color, Urine Yellow (Yellow); Glucose, Dipstick Normal (Normal); Ketone-Dipstick Negative (Negative); Leukocyte Esterase-Dipstick 500 /ul (Negative); Nitrite-Dipstick Negative (Negative); Occult Blood-Urine 150 /ul (Negative); Protein-Dipstick Negative (Negative); Specific Gravity, Urine 1.005 (1.002-1.030); Urine Bilirubin Dipstick Negative (Negative); Urine Clarity Sl. Cloudy (Clear); Urine Urobilinogen Normal (Normal)
[2021-06-09 08:35] LABS: Bacteria 2+ /hpf (None Seen); Mucous, Urine RARE /hpf (<or=2+); Red Blood Cells-Urine 0-5 SEEN /hpf (0-5); Squamous Epithelial Cells - UA 5-10 SEEN /hpf (5-10); White Blood Cells 25-50 SEEN /hpf (0-5)
== END 2021-06-09 09:24 | disposition home or self-care (01) ==
PROVIDERS: Emergency Provider Emergency Medicine; PCP Internal Medicine
DX: N39.0 Urinary tract infection, site not specified (principal); R20.0 Anesthesia of skin; R11.2 Nausea with vomiting, unspecified; E87.1 Hypo-osmolality and hyponatremia; I10 Essential (primary) hypertension; E03.9 Hypothyroidism, unspecified; E55.9 Vitamin D deficiency, unspecified; E78.5 Hyperlipidemia, unspecified; G47.33 Obstructive sleep apnea (adult) (pediatric); K21.9 Gastro-esophageal reflux disease without esophagitis; M19.90 Unspecified osteoarthritis, unspecified site; Z87.440 Personal history of urinary (tract) infections; Z79.82 Long term (current) use of aspirin; Z79.899 Other long term (current) drug therapy
CPT/HCPCS: 71046; 80053; 81001; 83690; 84484; 85025; 87077; 87086; 87088; 87186; 93005; 99285; J7040; A4216

== ENCOUNTER → 2021-06-14 | Outpatient (CLI) | payer MEDICARE, OTHER, SELFPAY | END | disposition home or self-care (01) | PROVIDERS: PCP Internal Medicine; Visit Provider Urology | DX: N30.01 Acute cystitis with hematuria (principal) | CPT/HCPCS: 87077; 87086; 87088; 87186 ==

== ENCOUNTER 2021-06-28 17:36 | Observation (INO) | payer MEDICARE, OTHER, SELFPAY ==
[2021-06-28] VITALS (10 sets, daily range): BP systolic 134–142; BP diastolic 49–59; PULSE 66–78; RESP 14–17; TEMP 36.3–36.6; O2SAT 95–100; BMI 25.7; BMI 25.4
--- NOTE | 2021-06-28 18:11 | EKG12_ITS ---
Test Reason : CHEST DISCOMFORT Blood Pressure : / mmHG Vent. Rate : 068 BPM Atrial Rate : 068 BPM P-R Int : 190 ms QRS Dur : 090 ms QT Int : 398 ms P-R-T Axes : 010 046 054 degrees QTc Int : 423 ms Normal sinus rhythm Normal ECG Confirmed by KEYSHA HINOJOSA, LIZBETH ([id number]), circuit board inspector RICARDO RANDALL ([id number]) on 06/29/2021 1:14:47 PM Referred By: RAN Confirmed By:LIZBETH CHOPRA MD
--- NOTE | 2021-06-28 18:12 | EX.ED.DYSGE1 ---
HPI History of Present Illness Chief Complaint: Abn Labs Detail of Chief Complaint: Comfort and not feeling well Informant: patient Narrative Narrative: Patient presents to the emergency department with main complaint of some chest discomfort that she has had since around 3:30 PM. Patient describes a dull ache in the center of her chest. Patient also had some numbness in her entire face and felt like she had some food that got stuck in her throat earlier today. Patient feels like the food is passed now she is able to swallow water. Patient is here with her daughter who called the primary care physician's office and they were advised to come to the emergency department. Patient apparently currently being treated for UTI and had been on Cipro but was switched to amoxicillin yesterday. Patient also had blood work last week and was noted to have a low sodium of 115. Patient had a repeat sodium level today but has not had a results yet. Prior similar symptoms: No PFSH PFSH Medical History (Updated 06/28/21 @ 20:[address] Jhonathan Whalen, ) DDD (degenerative disc disease) Eczema GERD (gastroesophageal reflux disease) HLD (hyperlipidemia) HTN (hypertension) Hypothyroid Insomnia EBENEZER (obstructive sleep apnea) Osteoarthritis Vitamin D deficiency Home Medications aspirin 81 mg PO MOFR 05/28/14 [History Last Taken 02/10/19] pantoprazole 40 mg PO DAILY 05/28/14 [History Last Taken 12/04/19 07:00 40 MG] trazodone 50 mg PO QHS 05/28/14 [History Last Taken 02/10/19] lisinopril [Zestril] 40 mg PO DAILY 12/24/16 [History Last Taken 12/04/19 07:00 40 MG] acetaminophen [Tylenol] 650 mg PO Q6H PRN PRN 05/07/18 [History Last Taken 02/10/19] fluticasone propionate 2 spray NASAL DAILY 05/07/18 [History Last Taken 02/04/19] hydrochlorothiazide 12.5 mg PO DAILY 05/07/18 [History Last Taken 02/11/19] amlodipine 10 mg PO DAILY 02/11/19 [History Last Taken 12/04/19 07:00 5 MG] cholecalciferol (vitamin D3) 2,000 unit PO DAILY 02/11/19 [History Last Taken 02/11/19] levothyroxine 25 mcg PO DAILY 02/11/19 [History Last Taken 02/11/19] furosemide 20 mg PO BID 06/09/21 [History Last Taken Unknown] gabapentin 100 mg PO TID PRN 06/09/21 [History Last Taken Unknown] rosuvastatin 5 mg PO DAILY 06/09/21 [History Last Taken Unknown] famotidine 20 mg PO DAILY 06/28/21 [History Last Taken Unknown] potassium chloride 20 meq PO DAILY 06/28/21 [History Last Taken Unknown] Allergy/AdvReac Type Severity Reaction Status Date / Time pravastatin Allergy Other Verified 06/09/21 07:17 simvastatin [From Zocor] Allergy Other Verified 06/09/21 07:17 adhesive tape AdvReac Rash Verified 12/03/19 10:24 hydrocodone [From [place]] AdvReac MENTAL Verified 12/03/19 10:23 STATUS CHANGE nitrofurantoin AdvReac Upset Verified 12/03/19 10:23 [From Macrobid] Stomach Family History (Updated 06/28/21 @ 20:[address] Flower Carter MD) Mother Heart disease Father Heart disease Sister Diabetes Breast cancer Brother Diabetes Surgical History (Updated 06/28/21 @ 20:[address] Flower Carter MD) History of bilateral tubal ligation History of total left knee replacement Hx of right breast biopsy S/P bilateral cataract extraction S/P cholecystectomy Social History Smoking Status: Never smoker ROS ROS ED Constitutional Constitutional ED: Reports systems reviewed and no addt'l complaints, except as documented; Denies body ache(s), change in weight or chills Eyes Eyes: Denies acute decrease in peripheral vision, change in vision, double vision or loss of vision ENT ENT ED: Reports none; Denies ear pain, lip swelling, loss taste/smell, neck pain, otalgia or sore throat Cardiovascular Cardiovascular: Reports none and chest pain; Denies abdominal pain, chest pain with activity, leg edema, lightheadedness, palpitations, rapid heart rate or syncope Respiratory/Chest Respiratory/Chest: Reports none and dyspnea; Denies change in mental status, dry cough, hemoptysis, shortness of breath at rest or shortness of breath with exertion Gastrointestinal Gastrointestinal: Reports none; Denies abdominal pain, change in stool character, diarrhea, hematemesis, hematochezia, melena, rectal bleeding or vomiting Genitourinary Genitourinary ED: Reports none; Denies abdominal discomfort, anuria, dysuria, genital pain or polyuria Musculoskeletal Musculoskeletal: Reports none; Denies arthralgias, back pain, difficulty walking, extremity pain, muscle weakness or myalgias Integumentary Reports none; Denies abscess or rash Neurologic Neurologic: Reports none and paresthesias; Denies abnormal gait, confusion, focal weakness, frequent falls, headache(s), loss of vision, numbness, radicular pain, vertigo or weakness Psychiatric Psychiatric: Reports systems reviewed and no addt'l complaints, except as documented and none; Denies behavioral changes, confusion, difficulty concentrating, hallucinations, suicidal ideation, tactile hallucinations or visual hallucinations Endocrine Endocrinology: Denies none, cold intolerance, excessive sweating, fatigue or heat intolerance Hematologic/Lymphatic Hematologic/Lymphatic: Reports none; Denies anemia, easy bleeding or easy bruising Allergic/Immunologic Allergic/Immunologic ED: Denies as per HPI, none, lip swelling, mouth swelling, throat swelling, tongue swelling or hives EXAM Physical Exam Const Vital Signs: 06/28/21 17:36 06/28/21 17:54 06/28/21 18:28 Temperature 97.8 F Temperature Source Temporal Pulse Rate 78 Respiratory Rate 16 Respiratory Effort Normal Non-Labored Blood Pressure 142/59 H Blood Pressure Mean 86 Pulse Ox 100 100 Oxygen Delivery Method Room Air Room Air 06/28/21 19:10 06/28/21 19:12 06/28/21 20:29 Temperature Temperature Source Pulse Rate 73 68 71 Respiratory Rate 17 Respiratory Effort Blood Pressure 134/54 H 134/54 H 135/49 H Blood Pressure Mean 80 Pulse Ox 99 Oxygen Delivery Method Room Air 06/28/21 20:31 Temperature Temperature Source Pulse Rate 66 Respiratory Rate 14 Respiratory Effort Blood Pressure 135/49 H Blood Pressure Mean 77 Pulse Ox 95 Oxygen Delivery Method Room Air Positive well nourished and well developed General Appearance ED: well developed and NAD HEENT Reports TM's clear and moist mucous membranes normocephalic and atraumatic; Negative for trauma or tenderness Tympanic Membrane ED: Yes TM's clear Eyes PERRL and EOMs intact bilaterally General Eye ED: Negative for pale conjunctiva or scleral icterus Neck no lymphadenopathy, supple and no JVD General: Negative for tenderness Chest Wall inspection of chest normal and palpation of chest normal Chest: Negative for tenderness Resp normal respiratory effort and clear to auscultation bilaterally Effort and Inspection: Negative for respiratory distress or pain with movement Auscultation: Negative for rhonchi, wheezes or diminished lung sounds Cardio regular rate, regular rhythm, S1 normal heart sound, S2 normal heart sound and no murmurs Peripheral Pulses: pulses 2+ throughout GI normal to inspection, nondistended, normoactive bowel sounds, soft to palpation, non-tender, non-distended and no masses Back/Spine no CVA tenderness and no thoracic nor lumbar tenderness Extremity normal to inspection General Extremety ED: Negative for edema General Extremity: Negative for edema Neuro oriented x3, CN's II-XII intact bilaterally, no sensory deficits noted and gait normal Sensorium / Orientation: awake, alert, oriented to person, oriented to place and oriented to time Motor Exam: strength 5/5 throughout and strength abnormal Psych mental status grossly normal Skin no rashes or lesions noted and no wounds MDM MDM MDM Narrative Medical decision making narrative: IV line established on arrival. Patient received aspirin. She was given sublingual nitro which did seem to improve her pain. She had an inch of Nitropaste placed to the anterior chest wall. Cardiac work-up was unremarkable. She started having more chest discomfort and received a second EKG which was unchanged from first. Patient is noted to have hyponatremia although improved from prior. Patient also noted to have worsening renal function with some concerns for dehydration. Case will be discussed with hospitalist evaluate patient for admission. Patient's heart score was a 4. Lab Data Attestation: I reviewed the patient's lab results. Labs: Laboratory Results - last 24 hr 06/28/21 06/28/21 19:09 19:09 WBC 6.6 RBC 3.98 L Hgb 11.7 L Hct 34.5 L MCV 86.7 MCH 29.4 MCHC 33.9 RDW Std Deviation 43.2 RDW Coeff of Bria 13.4 Plt Count 292 MPV 9.2 Immature Gran % (Auto) 0.600 Neut % (Auto) 59.9 Lymph % (Auto) 30.0 [place] % (Auto) 7.9 Eos % (Auto) 1.1 Baso % (Auto) 0.5 Absolute Neuts (auto) 4.0 Absolute Lymphs (auto) 1.98 Nucleated RBC % 0 Sodium 126 L Potassium 4.3 Chloride 91 L Carbon Dioxide 27.0 Anion Gap 8 BUN 50 H Creatinine 2.13 H Estim Creat Clear Calc 16.84 Est GFR (MDRD) Af Amer 29 L Est GFR (MDRD) Non-Af 24 L BUN/Creatinine Ratio 23.5 H Glucose 103 Calcium 10.0 Troponin I High Sens 10 Radiography Chest X-Ray - ED: 1 View Diagnostic Testing: Clinical Impression(s) from Imaging Studies Chest X-Ray 06/28/21 18:25 IMPRESSION: No acute cardiopulmonary disease or interval change. Electronically Signed: Valdemar Dan DO at 18:37 EST Tel [phone], Service support , 1 view chest x-ray obtained interpreted by myself as no acute disease process. Radiology in agreement. EKG Initial EKG: Attestation: I personally reviewed and interpreted this EKG as follows: Comments: Sinus rhythm with a ventricular rate of 68 bpm with no acute ST segment changes. Discharge Plan Dx/Rx/DC Orders Clinical Impression: Chest pain, Acute hyponatremia, Acute renal insufficiency Disposition Disposition: Acute Care [facility]
--- NOTE | 2021-06-28 18:25 | RAD_ITS ---
STUDY: X-RAY CHEST REASON FOR EXAM: Female, 80 years old. Chest pain. Hyponatremia. TECHNIQUE: Single AP portable view of the chest. COMPARISON: 06/09/2021. FINDINGS: The lungs are clear and expanded. There is no demonstrated pleural abnormality. Normal size heart. Normal mediastinum and ailin. Normal visualized pulmonary arteries. There is atherosclerotic calcification of the aortic arch with tortuosity. The thoracic spine is obscured by the mediastinum. Normal visualized ribs, clavicles, and shoulders. There is no demonstrated abnormality of the visualized soft tissue structures of the upper abdomen. RAD/Chest 1 View (Portable) IMPRESSION: No acute cardiopulmonary disease or interval change. Electronically Signed: Valdemar Dan DO at 18:37 EST Tel [phone], Service support ,
[2021-06-28] MEDS: 0.9% Normal Saline 1,000 ML 150 ML IV (19:07)
[2021-06-28] MEDS: Aspirin 81 MG TAB.CHEW 324 MG PO (19:07)
[2021-06-28] MEDS: Nitroglycerin SL (ED/IMG/CATH) 0.4 MG TABLET SL (19:10)
[2021-06-28 19:26] LABS: Absolute Lymphocyte Count 1.98 X10^3/uL (0.83-4.51); Basophil# 0.03 X10^3/uL; Basophil% 0.5 % (0-1); Eosinophil# 0.07 X10^3/uL; Eosinophils% 1.1 % (0-5); Hematocrit 34.5 % (37-47); Hemoglobin 11.7 g/dL (12.0-15.0); Lymphocyte # 1.98 X10^3/ul (0.83-4.51); Mean Corp Hgb Conc 33.9 g/dL (32-36); Mean Corpuscular Hgb 29.4 pg (27.0-32.0); Mean Corpuscular Volume 86.7 fL (81-99); Mean Platelet Vol. 9.2 fl (6.2-12.0); Monocyte# 0.52 X10^3/uL; Monocyte% 7.9 % (0-10); NRBC Flagged by Analyzer 0 % (0-5); Neutrophil # 3.97 X10^3/uL (2.7-7.7); Neutrophil % 59.9 % (47-70); Platelet Count 292 K/mm3 (150-450); RBC Distribution Width CV 13.4 % (11.6-14.6); RBC Distribution Width SD 43.2 fl (35.1-43.9); Red Blood Count 3.98 M/mm3 (4.2-5.4); White Blood Count 6.6 K/mm3 (4.4-11.0)
[2021-06-28 19:41] LABS: Anion Gap 8 (5-15); BUN 50 mg/dL (7-18); BUN/Creat Ratio 23.5 RATIO (10-20); Chloride 91 mmol/L (98-107); Creatinine, Serum 2.13 mg/dL (0.55-1.02); EST Glomerular Filtration Rate 24 mL/min (>60); Est Glom Filt Rate - Afr Amer 29 mL/min (>60); Estimated Creatinine Clearance 16.84 ml/min; Glucose 103 mg/dL (74-106); Potassium 4.3 mmol/L (3.5-5.1); Sodium Level 126 mmol/L (136-145); Troponin-I HS 10 pg/mL (3.0-54.0)
--- NOTE | 2021-06-28 19:49 | EKG12_ITS ---
Test Reason : NAUSEA Blood Pressure : / mmHG Vent. Rate : 069 BPM Atrial Rate : 069 BPM P-R Int : 158 ms QRS Dur : 084 ms QT Int : 390 ms P-R-T Axes : 008 045 061 degrees QTc Int : 417 ms Normal sinus rhythm Normal ECG Confirmed by JOSE G HINOJOSA, KATHIE ([id number]), video effects editor RICARDO RANDALL ([id number]) on 06/29/2021 2:10:37 PM Referred By: RAN Confirmed By:KATHIE ARAIZA MD
--- NOTE | 2021-06-28 20:12 | HP.PCM.HOS_ITS ---
HPI - General General Date of Admission: 06/28/21 Date of Service: 06/28/21 Chief Complaint: Recent abnormal labs, Chest pain. HPI Narrative The patient is an 80 y/o F w/ PMHx: HTN, HLD, Recurrent UTI w/ kidney stone, EBENEZER on CPAP 6 cm q HS, Obesity, Chronic back pain with L sided radiculopathy, GERD, Hypothyroidism who presents to the [facility] ED on 06/28/21 with history of abnormal outpatient labs with reported blood work 1 week ago with a sodium of 115 with recent outpatient treatment with urinary tract infection with ciprofloxacin shannon sanjeev she was recently transitioned amoxicillin the day prior with ongoing complaints of dull aching in the center of her chest, tightness sensation with difficulty rating although from description suspect tentative 10 with flushed face but no dyspnea, nausea, emesis however she did have facial paresthesias describing it is just a general tingling and described a lump in her throat with some difficulty swallowing starting at 3:30 PM prompting ED evaluation as she had repeat labs and is yet to obtain the results with referral to the ED if she had ongoing symptoms per PCP. Patient notes that chest discomfort is resolved currently. Patient does state that her Lasix was stopped the prior Sunday but she is was still on at that time hydrochlorothiazide. Of note patient had 01/13/2021 stress echocardiogram with EF 65%, mild aortic stenosis, mild AV insufficiency, dobutamine stress echo negative for infusion induced chest pain or EKG or echocardiographic changes of ischemia with noted mobile echodensity in the LV. Work-up in the ED included T 97.8, heart rate 78, BP 142/59, respiratory rate 16, 100% on room air, CBC with WBC 6.6, hemoglobin 11.7, platelet 292 without marked shift, BMP with sodium 126, chloride 91, BUN/creatinine 50/2.13 otherwise not marked appearing, high-sensitivity troponin 10, chest x-ray with no acute cardiopulmonary findings, EKG SR without acute evidence of ischemia. In the ED patient administered sublingual nitroglycerin, aspirin 324 mg p.o. x1 and normal saline. [facility] Medical History (Updated 06/28/21 @ 21:[address] Flower Carter MD) DDD (degenerative disc disease) Eczema GERD (gastroesophageal reflux disease) HLD (hyperlipidemia) HTN (hypertension) Hypothyroid Insomnia EBENEZER (obstructive sleep apnea) Osteoarthritis Vitamin D deficiency Home Medications aspirin 81 mg PO MOFR 05/28/14 [History Last Taken 02/10/19] pantoprazole 40 mg PO DAILY 05/28/14 [History Last Taken 12/04/19 07:00 40 MG] trazodone 50 mg PO QHS 05/28/14 [History Last Taken 02/10/19] lisinopril [Zestril] 40 mg PO DAILY 12/24/16 [History Last Taken 12/04/19 07:00 40 MG] acetaminophen [Tylenol] 650 mg PO Q6H PRN PRN 05/07/18 [History Last Taken 02/10/19] fluticasone propionate 2 spray NASAL DAILY 05/07/18 [History Last Taken 02/04/19] hydrochlorothiazide 12.5 mg PO DAILY 05/07/18 [History Last Taken 02/11/19] amlodipine 10 mg PO DAILY 02/11/19 [History Last Taken 12/04/19 07:00 5 MG] cholecalciferol (vitamin D3) 2,000 unit PO DAILY 02/11/19 [History Last Taken 02/11/19] levothyroxine 25 mcg PO DAILY 02/11/19 [History Last Taken 02/11/19] furosemide 20 mg PO BID 06/09/21 [History Last Taken Unknown] gabapentin 100 mg PO TID PRN 06/09/21 [History Last Taken Unknown] rosuvastatin 5 mg PO DAILY 06/09/21 [History Last Taken Unknown] amoxicillin 500 mg PO BID 06/28/21 [History Last Taken Unknown] famotidine 20 mg PO DAILY 06/28/21 [History Last Taken Unknown] potassium chloride 20 meq PO DAILY 06/28/21 [History Last Taken Unknown] Allergy/AdvReac Type Severity Reaction Status Date / Time pravastatin Allergy Other Verified 06/09/21 07:17 simvastatin [From Zocor] Allergy Other Verified 06/09/21 07:17 adhesive tape AdvReac Rash Verified 12/03/19 10:24 hydrocodone [From [place]] AdvReac MENTAL Verified 12/03/19 10:23 STATUS CHANGE nitrofurantoin AdvReac Upset Verified 12/03/19 10:23 [From Macrobid] Stomach Family History (Updated 06/28/21 @ 20:[address] Flower Carter MD) Mother Heart disease Father Heart disease Sister Diabetes Breast cancer Brother Diabetes Surgical History (Updated 06/28/21 @ 20:[address] Flower Carter MD) History of bilateral tubal ligation History of total left knee replacement Hx of right breast biopsy S/P bilateral cataract extraction S/P cholecystectomy Social History (Updated 06/28/21 @ 21:[address] Flower Carter MD) household members: none Smoking Status: Never smoker alcohol intake: never substance use type: does not use ROS ROS Narrative Admission Review of Systems: CONSTITUTIONAL: No weight loss, fever, chills, + weakness or fatigue. HEENT: Eyes: No visual loss, blurred vision, double vision or yellow sclerae. Ears, Nose, Throat: No hearing loss, sneezing, congestion, runny nose or sore throat. SKIN: No rash or itching, lesions, wounds. CARDIOVASCULAR: +chest pain, chest pressure or chest discomfort, No palpitations, edema, orthopnea, syncopal events. RESPIRATORY: No shortness of breath, cough or sputum, wheezing, hemoptysis. GASTROINTESTINAL: + Dyspepsia, transient dysphagia sensation, lump in her throat. No anorexia, nausea, vomiting or diarrhea, abdominal pain, melena, BRBPR. GENITOURINARY: No dysuria, frequency, urgency or retention. NEUROLOGICAL: No headache, dizziness, syncope, paralysis, ataxia, numbness or tingling in the extremities, focal weakness, change in bowel or bladder control, seizure. MUSCULOSKELETAL: + muscle, back pain, joint pain or stiffness. HEMATOLOGIC: + anemia, bleeding or bruising. LYMPHATICS: No enlarged nodes. No history of splenectomy. PSYCHIATRIC: No history of depression or anxiety. ENDOCRINOLOGIC: No reports of sweating, cold or heat intolerance. No polyuria or polydipsia. ALLERGIES: + history of asthma, hives, eczema or rhinitis. Vital Signs Vital Signs Vital Signs: 06/28/21 17:36 06/28/21 17:54 06/28/21 18:28 Temperature 97.8 F Temperature Source Temporal Pulse Rate 78 Respiratory Rate 16 Respiratory Effort Normal Non-Labored Blood Pressure 142/59 H Blood Pressure Mean 86 Pulse Ox 100 100 Oxygen Delivery Method Room Air Room Air 06/28/21 19:10 06/28/21 19:12 Temperature Temperature Source Pulse Rate 73 68 Respiratory Rate 17 Respiratory Effort Blood Pressure 134/54 H 134/54 H Blood Pressure Mean 80 Pulse Ox 99 Oxygen Delivery Method Room Air Weight Weight: 145 lb Body Mass Index (BMI) 25.7 Physical Exam Narrative Physical Examination: General: Awake, alert, oriented x 3 and cooperative, seated upright in the ED bed in no apparent distress, chest pain resolved currently, fatigued and stressed appearing. Skin: Normal color, normal turgor, no icterus, no cyanosis. HEENT: AT/NC, EOMI, PERRLA, mildly dry MM, no carotid bruits or JVD noted. Lungs: Mild diminished, greater bases, appropriate effort, no rales, ronchi or wheezing. Heart: Regular rate and rhythm; no gallop, rub audible. Abdomen: Soft, NTTP, ND, mildly hyperactive distant BS, no HSM. Extremities: No cyanosis, clubbing, or edema. Neurological: Patient awake, alert, oriented as noted, cognitive function intact; pupils equally reactive to light and accommodation, cranial nerves II- XII grossly normal, moving all 4 extremities, no focal deficits, strength mildly globally Mel secondary to acute complaints. Psychiatric: Affect appears fatigued, anxious appearing, no acute evidence of depressive feelings. Results Lab / Micro Data Result Diagrams: 06/28/21 19:09 06/28/21 19:09 Labs: Laboratory Results - last 24 hr 06/28/21 19:09: WBC 6.6, RBC 3.98 L, Hgb 11.7 L, Hct 34.5 L, MCV 86.7, MCH 29.4, MCHC 33.9, RDW Std Deviation 43.2, RDW Coeff of Bria 13.4, Plt Count 292, MPV 9.2, Immature Gran % (Auto) 0.600, Neut % (Auto) 59.9, Lymph % (Auto) 30.0, [place] % (Auto) 7.9, Eos % (Auto) 1.1, Baso % (Auto) 0.5, Absolute Neuts (auto) 4.0, Absolute Lymphs (auto) 1.98, Nucleated RBC % 0 06/28/21 19:09: Sodium 126 L, Potassium 4.3, Chloride 91 L, Carbon Dioxide 27.0, Anion Gap 8, BUN 50 H, Creatinine 2.13 H, Estim Creat Clear Calc 16.84, Est GFR (MDRD) Af Amer 29 L, Est GFR (MDRD) Non-Af 24 L, BUN/Creatinine Ratio 23.5 H, Glucose 103, Calcium 10.0, Troponin I High Sens 10 Radiology Impression Chest X-Ray 06/28/21 18:25 IMPRESSION: No acute cardiopulmonary disease or interval change. Electronically Signed: Valdemar Dan, at 18:37 EST Tel [phone], Service support , Assessment & Plan Assessment/Plan (1) Chest pain: QUALIFIERS: Chest pain type: unspecified Qualified Code(s): R07.9 - Chest pain, unspecified (2) Acute hyponatremia: (3) Acute renal insufficiency: PLAN: The patient is an 80 y/o F w/ PMHx: HTN, HLD, Recurrent UTI w/ kidney stone, EBENEZER on CPAP 6 cm q HS, Obesity, Chronic back pain with L sided radiculopathy, GERD, Hypothyroidism who presents to the [facility] ED on 06/28/21 with history of abnormal outpatient labs with reported blood work 1 week ago with a sodium of 115 with recent outpatient treatment with urinary tract infection with ciprofloxacin however she was recently transitioned amoxicillin the day prior with ongoing complaints of dull aching in the center of her chest, tightness sensation. 1. Chest Pain: EKG in ED with SR without acute evidence of ischemia, CXR w/ no acute cardiopulmonary findings, initial trop normal x1. Unclear if related with electrolyte disturbances. To be cautious will admit to PCU, will place on a monitored bed to assure no acute myocardial infarction with serial cardiac enzymes and EKGs. Magnesium level requested. FLP in AM. If labs improved and no concerning EKG changes or elevated enzymes may pursue AM stress testing. ASA, NG, morphine. 2. Acute on chronic hyponatremia, unclear etiology, possibly medication related: Given use of diuretics will judiciously hydrate, hold diuretics, will obtain osmolality as well as FeNa, UA, TSH, FT4 and alter treatment pending results, may also consider nephrology involvement pending repeat AM CMP. 3. Chronic Kidney Disease Stage III, unclear subtype with acute renal insufficiency: Admission BUN/Cr 50/2.13, baseline renal function 1.9 most recently 06/09/2021, repeat BMP in AM. 4. Hypertension: Continue home regimen including lisinopril, amlodipine, holding hydrochlorothiazide and continue to hold Lasix given severity of hyponatremia, PRN hydralazine. 5. Hyperlipidemia: We will continue patient home statin therapy. 6. Hypothyroidism: Continue home synthroid regimen, TSH and FT4 pending. 7. Allergic rhinitis: We will continue patient home fluticasone regimen. 8. GERD: We will continue patient on PPI. 9. EBENEZER: We will continue CPAP nightly. 10. DVT prophylaxis: SCDs, Lovenox. 11. CODE status: Patient HCPOA and living will is not in place. Given patient advancing age encouraged to set up. Patient's daughter present. Discussed CODE status at length including difference between FULL code, DNR-CCA and DNR-CC status. Following discussions about the differences in these status, requested Full Code status. Advanced Care Planning Face to Face Time: 16 minutes. Charges/Coding Visit Charges OBSV E&M: 41513 Initial observation care L3 Procedures Hospitalists Procedures: 27717 Advncd Care Plan 30 Min
[2021-06-28] MEDS: Nitroglycerin Oint 1 INCH PACKET TD (20:29)
[2021-06-28 20:51] LABS: Magnesium 2.7 mg/dL (1.6-2.6)
[2021-06-28 21:23] LABS: Osmolality, Serum 281 mOsm/KG (280-301)
--- NOTE | 2021-06-28 21:25 | EKG12_ITS ---
Test Reason : CP ADMISS Blood Pressure : / mmHG Vent. Rate : 067 BPM Atrial Rate : 067 BPM P-R Int : 164 ms QRS Dur : 086 ms QT Int : 402 ms P-R-T Axes : 032 047 059 degrees QTc Int : 424 ms Sinus rhythm with Premature supraventricular complexes Otherwise normal ECG When compared with ECG of 09-JUN-2021 08:04, No significant change was found Confirmed by JOSE G HINOJOSA, KATHIE ([id number]), photograph editor RICARDO RANDALL ([id number]) on 06/29/2021 1:03:48 PM Referred By: HORACIO Confirmed By:KATHIE ARAIZA MD
--- NOTE | 2021-06-28 21:34 | PCS.PANDOC ---
PANDEMIC DOCUMENTATION INITIATED: Date: 03/28/2021 Time: 190
[2021-06-28] MEDS: 0.9% Normal Saline 1,000 ML 100 ML IV (21:52)
[2021-06-28] MEDS: Ondansetron 4 MG/2 ML Vial IV (22:24)
[2021-06-28] MEDS: Atorvastatin Calcium 10 MG Tablet PO (22:54)
[2021-06-28] MEDS: traZODone 50 MG Tablet PO (22:54)
[2021-06-28 23:11] LABS: Troponin-I HS 10 pg/mL (3.0-54.0)
[2021-06-29] VITALS (12 sets, daily range): BP systolic 97–126; BP diastolic 40–53; PULSE 57–72; RESP 16–18; TEMP 36.3–37.1; O2SAT 92–97
[2021-06-29] MEDS: AMOXICILLIN 500 MG CAPSULE PO ×3 (00:22→20:47)
[2021-06-29 01:59] LABS: Troponin-I HS 12 pg/mL (3.0-54.0)
[2021-06-29 04:10] LABS: Osmolality, Urine 192 mOsm/KG
[2021-06-29 04:13] LABS: Urine Sodium 24 mmol/L (Not Establ.)
[2021-06-29 05:28] LABS: Absolute Lymphocyte Count 1.69 X10^3/uL (0.83-4.51); Absolute Neutrophil Count 2.2 X10^3/uL (2.0-7.7); Basophil# 0.01 X10^3/uL; Basophil% 0.2 % (0-1); Eosinophil# 0.07 X10^3/uL; Eosinophils% 1.6 % (0-5); Hematocrit 29.5 % (37-47); Lymphocyte # 1.69 X10^3/ul (0.83-4.51); Lymphocyte % 39.1 % (19-41); Mean Corp Hgb Conc 33.9 g/dL (32-36); Mean Corpuscular Hgb 29.6 pg (27.0-32.0); Mean Corpuscular Volume 87.3 fL (81-99); Mean Platelet Vol. 8.9 fl (6.2-12.0); Monocyte# 0.31 X10^3/uL; Monocyte% 7.2 % (0-10); NRBC Flagged by Analyzer 0 % (0-5); Neutrophil # 2.22 X10^3/uL (2.7-7.7); Neutrophil % 51.4 % (47-70); Platelet Count 230 K/mm3 (150-450); RBC Distribution Width CV 13.5 % (11.6-14.6); RBC Distribution Width SD 43.4 fl (35.1-43.9); Red Blood Count 3.38 M/mm3 (4.2-5.4); White Blood Count 4.3 K/mm3 (4.4-11.0)
[2021-06-29 05:59] LABS: ALB/GLOB Ratio 1.1 RATIO (0.9-2.4); AST(SGOT) 11 U/L (15-37); Alanine Aminotransfer ALT/SGPT 18 U/L (13-56); Albumin, Serum 3.3 g/dL (3.2-5.0); Alkaline Phosphatase 63 U/L (45-117); Anion Gap 6 (5-15); BUN 49 mg/dL (7-18); BUN/Creat Ratio 24.5 RATIO (10-20); Chloride 97 mmol/L (98-107); Cholesterol 115 mg/dL (200); EST Glomerular Filtration Rate 25 mL/min (>60); Est Glom Filt Rate - Afr Amer 31 mL/min (>60); Estimated Creatinine Clearance 17.94 ml/min; Glucose 91 mg/dL (74-106); High Density Lipoprotein 35 mg/dL; Potassium 4.5 mmol/L (3.5-5.1); Protein, Total 6.3 g/dL (6.4-8.2); Sodium Level 130 mmol/L (136-145); T4 Free Direct 1.35 ng/dL (0.76-1.46); Thyroid Stim Hormone (TSH) 1.26 uIU/mL (0.358-3.74); Triglycerides 132 mg/dL; Very Low Density Lipoprotein 26 mg/dL (5-40)
[2021-06-29] MEDS: Levothyroxine 25 MCG TABLET PO (06:08)
[2021-06-29] MEDS: Lisinopril 40 MG Tablet PO (06:08)
[2021-06-29] MEDS: 0.9% Normal Saline 1,000 ML 100 ML IV ×2 (07:01→16:53)
--- NOTE | 2021-06-29 10:52 | STRESSREP_ITS ---
Stress Test Report Date: 06-29-2021 Procedure: Pharmacologic stress nuclear imaging study Indications: Chest pain Consent: Per the patient Procedure: The patient underwent pharmacologic (Regadenoson 0.4mg ) evaluation with a peak heart rate of 86 beats per minute (62%predicted maximal heart rate) and a peak blood pressure of 118/50 mmHg. The baseline ECG demonstrated sinus rhythm. The peak pharmacologic ECG demonstrated no obvious ECG changes. There were no cardiac dysrhythmias pretest, during pharmacologic infusion, or recovery. There was no complaint of chest discomfort during pharmacologic infusion or recovery. The examination was discontinued secondary to completion of protocol. Impression: 1. Pharmacologic (Regadenoson) evaluation 2. Peak pharmacologic ECG with no obvious ECG changes. 3. There were no cardiac dysrhythmias pretest, during pharmacologic infusion, or recovery. 4. Nuclear images pending Myocardial perfusion imaging study: Technique: The patient was injected with 11.1 millicuries of technetium 99m Cardiolite and subsequently rest SPECT Cardiolite nuclear imaging was obtained in the horizontal long, vertical long, and short axis views. The patient underwent pharmacologic (Regadenoson) evaluation with a peak heart rate of 86 beats per minute (62% percent predicted maximal heart rate) and a peak blood pressure of 118/50 mmHg. The patient was injected with 33.3 millicuries of technetium 99m Cardiolite and subsequently stress SPECT Cardiolite nuclear imaging was obtained in the horizontal long, vertical long, and short axis views. A gated Cardiolite study at peak stress was obtained. Interpretation: Rest and stress SPECT Cardiolite nuclear imaging status post realignment, normalization, and attenuation correction demonstrate relative uniform tracer uptake and myocardial perfusion appearing within normal limits. There is end systolic thickening and brightening. The gated Cardiolite study demonstrates myocardial thickening and inward wall motion. The reported LVEF is 93%. Impression: 1. Relative uniform tracer uptake and myocardial perfusion appearing within normal limits. 2. The gated Cardiolite study reports an LVEF of 93%. This note was generated with [employer] software. It may contain incorrect words, spelling, and punctuation that were not noted in checking the note before signing.
[2021-06-29] MEDS: Potassium Chloride Oral Tablet 20 MEQ PO (13:53)
[2021-06-29] MEDS: Enoxaparin 30 MG/0.3 ML Syringe SC (13:53)
[2021-06-29] MEDS: Fluticasone 0.05% 1 SPRAY NASAL.SRY 2 SPRAY NASAL (13:53)
[2021-06-29] MEDS: Cholecalciferol (VIT D3) 25 MCG TABLET (1,000 UNITS) 50 MCG PO (13:53)
[2021-06-29] MEDS: Pantoprazole Sodium 40 MG Tablet PO (13:54)
--- NOTE | 2021-06-29 14:13 | PN.HOSP_ITS ---
Subjective Subjective Patient seen and examined. She still felt a bit weak this morning. She had no active complaints. REview of systems is otherwise negative. Her blood pressure noted to be running low this morning. Sodium is up to 130. Objective Data Objective Data Vital Signs: Vital Signs Temp Pulse Resp BP Pulse Ox 98.1 F 64 16 104/40 L 97 06/29/21 13:46 06/29/21 13:46 06/29/21 13:46 06/29/21 13:46 06/29/21 13:46 Oxygen Delivery Method Room Air Weight: 145 lb 8.081 oz Body Mass Index (BMI) 25.4 Intake & Output: Intake and Output for Last 24 Hours 06/27/21 06/28/21 06/29/21 23:59 23:59 23:59 Intake Total 532.5 / 532.5 1243.33 / 1243.33 Balance 532.5 / 532.5 1243.33 / 1243.33 Lab / Micro Data Result Diagrams: 06/29/21 05:20 06/29/21 05:20 Labs: Laboratory Results - last 24 hr 06/28/21 19:09: WBC 6.6, RBC 3.98 L, Hgb 11.7 L, Hct 34.5 L, MCV 86.7, MCH 29.4, MCHC 33.9, RDW Std Deviation 43.2, RDW Coeff of Bria 13.4, Plt Count 292, MPV 9.2, Immature Gran % (Auto) 0.600, Neut % (Auto) 59.9, Lymph % (Auto) 30.0, [place] % (Auto) 7.9, Eos % (Auto) 1.1, Baso % (Auto) 0.5, Absolute Neuts (auto) 4.0, Absolute Lymphs (auto) 1.98, Nucleated RBC % 0 06/28/21 19:09: Sodium 126 L, Potassium 4.3, Chloride 91 L, Carbon Dioxide 27.0, Anion Gap 8, BUN 50 H, Creatinine 2.13 H, Estim Creat Clear Calc 16.84, Est GFR (MDRD) Af Amer 29 L, Est GFR (MDRD) Non-Af 24 L, BUN/Creatinine Ratio 23.5 H, Glucose 103, Calcium 10.0, Troponin I High Sens 10 06/28/21 19:09: Magnesium 2.7 H 06/28/21 20:55: Serum Osmolality 281 06/28/21 22:27: Troponin I High Sens 10 06/29/21 01:10: Troponin I High Sens 12 06/29/21 02:43: Urine Osmolality 192 06/29/21 02:43: Ur Random Sodium 24, Urine Creatinine 33.40 06/29/21 05:20: WBC 4.3 L, RBC 3.38 L, Hgb 10.0 L, Hct 29.5 L, MCV 87.3, MCH 29.6, MCHC 33.9, RDW Std Deviation 43.4, RDW Coeff of Bria 13.5, Plt Count 230, MPV 8.9, Immature Gran % (Auto) 0.500, Neut % (Auto) 51.4, Lymph % (Auto) 39.1, [place] % (Auto) 7.2, Eos % (Auto) 1.6, Baso % (Auto) 0.2, Absolute Neuts (auto) 2.2, Absolute Lymphs (auto) 1.69, Nucleated RBC % 0 06/29/21 05:20: Sodium 130 L, Potassium 4.5, Chloride 97 L, Carbon Dioxide 27.0, Anion Gap 6, BUN 49 H, Creatinine 2.00 H, Estim Creat Clear Calc 17.94, Est GFR (MDRD) Af Amer 31 L, Est GFR (MDRD) Non-Af 25 L, BUN/Creatinine Ratio 24.5 H, Glucose 91, Calcium 9.0, Total Bilirubin 0.30, AST 11 L, ALT 18, Alkaline Phosphatase 63, Total Protein 6.3 L, Albumin 3.3, Globulin 3.0, Albumin/Globulin Ratio 1.1, Triglycerides 132, Cholesterol 115, LDL Cholesterol 54, VLDL Cholesterol 26, HDL Cholesterol 35 L, TSH 1.26, Free T4 1.35 Radiography Diagnostic Testing: Radiology Impression Chest X-Ray 06/28/21 18:25 IMPRESSION: No acute cardiopulmonary disease or interval change. Electronically Signed: Valdemar Dan DO at 18:37 EST Tel [phone], Service support , Physical Exam Const alert, oriented x3 and no apparent distress Exam Limitations: no limitations HEENT head/scalp atraumatic and moist oral mucous membranes Head and Scalp: normocephalic Eyes PERRL, EOMs intact bilaterally and conjunctivae normal Neck no lymphadenopathy Resp normal respiratory effort, no retractions, no use of accessory muscles and clear to auscultation bilaterally Cardio regular rate, regular rhythm, S1 normal heart sound, S2 normal heart sound and no murmurs GI normal to inspection, nondistended, normoactive bowel sounds, soft to palpation, non-tender and non-distended Extremity normal to inspection Peripheral Pulses: Yes pulses 2+ throughout Skin no rashes or lesions noted Neuro oriented x3, CN's II-XII intact bilaterally and moves all extremities Sensorium / Orientation: awake and alert Psych affect normal Assessment & Plan Assessment/Plan (1) Chest pain: QUALIFIERS: Chest pain type: unspecified Qualified Code(s): R07.9 - Chest pain, unspecified (2) Acute hyponatremia: PLAN: #Chest pain to r/o ACS * had stress test which was negative today * SL nitroglycerin prn. * PO aspirin 81mg daily. * #Acute on chronic hyponatremia * Na is up to 130 today. * continue gentle hydration with IVF and trend * # CKD stage 3 * CR was 2.13 on admission, with a baesline of 1.9. * hydrate gently adn trend sodium levels * #Hypertnsion: on lisinopril, amlodipine. Hydrochlorothiazide and Lasix on hold due to hyponatremia. #Hyperlipidemia: On statin #Hypothyroidism: On Synthroid #Allergic rhinitis: Fluticasone #GERD: On PPI #EBENEZER: On CPAP nightly #DVT prophylaxis: Lovenox Charges/Coding Visit Charges OBSV E&M: 10554 Subsequent observation care L2
--- NOTE | 2021-06-29 15:24 | CASEMGMT ---
DEUCE CM in to complete VELAS[employer] form with patient. RN BREANNE explained VELASCO form to patient, patient voiced understanding. Patient signed VELASCO form and filed in chart. Patient provided with copy of signed V[employer]AS[employer] form. Patient had no further questions or concerns at this time.
[2021-06-29] MEDS: traZODone 50 MG Tablet PO (20:47)
[2021-06-29] MEDS: Atorvastatin Calcium 10 MG Tablet PO (20:47)
[2021-06-30] VITALS (7 sets, daily range): BP systolic 121–132; BP diastolic 48–53; PULSE 69–78; RESP 16; TEMP 36.7–37; O2SAT 94–99
[2021-06-30] MEDS: 0.9% Normal Saline 1,000 ML 100 ML IV ×2 (03:00→12:59)
[2021-06-30] MEDS: Levothyroxine 25 MCG TABLET PO (05:13)
[2021-06-30 07:05] LABS: Absolute Neutrophil Count 3.2 X10^3/uL (2.0-7.7); Basophil# 0.02 X10^3/uL; Basophil% 0.4 % (0-1); Eosinophil# 0.05 X10^3/uL; Eosinophils% 0.9 % (0-5); Hematocrit 32.3 % (37-47); Hemoglobin 10.6 g/dL (12.0-15.0); Lymphocyte % 32.1 % (19-41); Mean Corp Hgb Conc 32.8 g/dL (32-36); Mean Corpuscular Hgb 29.5 pg (27.0-32.0); Mean Platelet Vol. 9.3 fl (6.2-12.0); Monocyte# 0.37 X10^3/uL; NRBC Flagged by Analyzer 0 % (0-5); Neutrophil # 3.15 X10^3/uL (2.7-7.7); Neutrophil % 59.4 % (47-70); Platelet Count 229 K/mm3 (150-450); RBC Distribution Width CV 13.8 % (11.6-14.6); RBC Distribution Width SD 45.9 fl (35.1-43.9); Red Blood Count 3.59 M/mm3 (4.2-5.4); White Blood Count 5.3 K/mm3 (4.4-11.0)
[2021-06-30 07:36] LABS: Anion Gap 4 (5-15); BUN 28 mg/dL (7-18); BUN/Creat Ratio 21.1 RATIO (10-20); Calcium,Total 9.3 mg/dL (8.5-10.1); Chloride 105 mmol/L (98-107); Creatinine, Serum 1.33 mg/dL (0.55-1.02); EST Glomerular Filtration Rate 41 mL/min (>60); Est Glom Filt Rate - Afr Amer 49 mL/min (>60); Estimated Creatinine Clearance 26.98 ml/min; Glucose 89 mg/dL (74-106); Potassium 4.5 mmol/L (3.5-5.1); Sodium Level 134 mmol/L (136-145)
[2021-06-30] MEDS: AMOXICILLIN 500 MG CAPSULE PO (09:18)
[2021-06-30] MEDS: Lisinopril 40 MG Tablet PO (09:18)
[2021-06-30] MEDS: Enoxaparin 30 MG/0.3 ML Syringe SC (09:18)
[2021-06-30] MEDS: Potassium Chloride Oral Tablet 20 MEQ PO (09:18)
[2021-06-30] MEDS: Pantoprazole Sodium 40 MG Tablet PO (09:18)
[2021-06-30] MEDS: Fluticasone 0.05% 1 SPRAY NASAL.SRY 2 SPRAY NASAL (09:18)
[2021-06-30] MEDS: Cholecalciferol (VIT D3) 25 MCG TABLET (1,000 UNITS) 50 MCG PO (09:18)
[2021-06-30] MEDS: amLODIPine 10 MG Tablet PO (09:18)
--- NOTE | 2021-06-30 15:40 | CASEMGMT ---
DEUCE RAYMUNDO NOTE: Pt being discharged home. PT/OT notes have been reviewed. No additional therapy recommended. ST notes reviewed-OP Modified Barium recommended and per ST, they discussed this w/pt and daughter. DEUCE RAYMUNDO to room. Pt sitting up in chair in room. She denies having any concerns w/going home and denies having any questions or needs. Pt's son, from [place], is in town visiting and plans to stay w/pt for the following week. Rosi BARAHONAN DEUCE CM
--- NOTE | 2021-06-30 15:48 | DS.PCM_ITS ---
Providers Date of Admission: 06/28/21 Primary Care Physician: Dr. Nereida Valdez MD Reason For Visit: ABNORMAL LABS, CHEST PAIN Diagnosis Discharge Diagnosis (1) Chest pain: Status: Acute Code(s): R07.9 - Chest pain, unspecified Qualifiers: Chest pain type: unspecified Qualified Code(s): R07.9 - Chest pain, unspecified (2) Acute hyponatremia: Status: Acute Code(s): E87.1 - Hypo-osmolality and hyponatremia Medications at Discharge Home Medications aspirin 81 mg PO MOFR 05/28/14 pantoprazole 40 mg PO DAILY 05/28/14 trazodone 50 mg PO QHS 05/28/14 acetaminophen [Tylenol] 650 mg PO Q6H PRN PRN 05/07/18 fluticasone propionate 2 spray NASAL DAILY 05/07/18 cholecalciferol (vitamin D3) 2,000 unit PO DAILY 02/11/19 levothyroxine 25 mcg PO DAILY 02/11/19 gabapentin 100 mg PO TID PRN 06/09/21 rosuvastatin 5 mg PO DAILY 06/09/21 amoxicillin 500 mg PO BID 06/28/21 famotidine 20 mg PO DAILY 06/28/21 potassium chloride 20 meq PO DAILY 06/28/21 furosemide 20 mg PO DAILY PRN #30 tab 06/30/21 lisinopril 20 mg PO DAILY #30 tab 06/30/21 Hospital Course Operations None Procedures Nuclear stress test Summary of Care Provided Minutes Spent on Discharge: 45 Hospital Course: Patient is an 80-year-old female with an extensive past medical history as outlined was admitted through the ED on 06/28/2021 on account of abnormal outpatient labs. She had had blood work done about a week ago and results showed sodium of 115. She also complained of some chest pressure and pain but denied any nausea or vomiting or any shortness of breath and also ad mitted to some facial paresthesia and a lump in her throat with some difficulty swallowing. Her Lasix had been stopped a few days prior but she was still taking hydrochlorothiazide. She was admitted and managed for acute on chronic hyponatremia and chest pain. She had stress test on 06/29/2021 which was negative for any evidence of ischemia. Sodium gradually trended up to 134 with hydration. Patient was also noted to have what was initially thought to be CKD stage III. However from patient's chart that her daughter brought in showing the trend of her kidney function, her baseline creatinine was noted to be around 1.1. Patient was therefore noted to have MALORIE on CKD stage III. Creatinine trended down to 1.3 with hydration at time of discharge. Patient had reportedly mentioned that she had a history of difficulty swallowing. She did not have any difficulty swallowing during admission. However speech therapy was consulted and patient had a swallow evaluation and speech therapy recommended texture modifications and swallow techniques. She was also recommended to have a barium swallow to be done on outpatient basis. Patient remained stable and was discharged home on 06/30/2021. She was counseled to keep well-hydrated to help maintain a kidney function and to follow-up with her primary care doctor on outpatient basis. Patient seen and examined prior to discharge. She had no active complaints and review of systems otherwise negative. Labs and vitals reviewed. Home m edication reviewed and reconciled. I also spoke to patient's daughter Janine about her kidney function and overall course of care. Labs and vitals reviewed. Home medication reviewed and reconciled. Patient's amlodipine was stopped due to her lower extremity edema, and her lisinopril increased to 40mg daily. Her HCTZ was also stopped due to hyponatremia. Physical Exam Const alert, oriented x3 and no apparent distress General Appearance: cooperative and comfortable Orientation / Consciousness: awake Exam Limitations: no limitations HEENT normocephalic, head/scalp atraumatic and moist oral mucous membranes Eyes PERRL, EOMs intact bilaterally and conjunctivae normal Neck no lymphadenopathy Resp normal respiratory effort, no retractions, no use of accessory muscles and clear to auscultation bilaterally Cardio regular rate, regular rhythm, S1 normal heart sound, S2 normal heart sound and no murmurs GI normal to inspection, nondistended, normoactive bowel sounds, soft to palpation, non-tender and non-distended Extremity normal to inspection Skin no rashes or lesions noted Neuro oriented x3, CN's II-XII intact bilaterally and moves all extremities Sensorium / Orientation: awake and alert Psych affect normal Medical Records Data Medical Nutrition Assessment Dietitian: Malnutrition Criteria Met Start: 06/29/21 15:31 Freq: Status: Active Protocol: Document 06/29/21 15:32 AG (Rec: 06/29/21 15:32 AG [id number]) Nutrition Malnutrition Evidence of Malnutrition Exists Yes Malnutrition (severe): Acute Illness/Injury Evidenced By Suboptimal Energy Intake ( Severe),Weight Loss (Severe) Clinical Problem Acute Disease or Injury Related Malnutrition Etiology severe, acute malnutrition r/t inadequate energy intake d/t feeling unwell, emesis w/ eating Signs/Symptoms as evidenced by estimated PO intake meeting <50% of estimated nutritional needs >1 week, unintentional wt loss of 14.5#/9% x 1 month Status Active Problem Recommendation Dietitian Recommendations/Changes if PO intake remains poor, recommend regular diet- consistency/texture modification per COMPUTER FORENSICS EXAMINER. Continue Ensure Enlive w/ medpass d/t malnutrition. Will monitor labs and provide additional nutrition recommendations as indicated. Weight / BMI Weight Weight: 146 lb 2.664 oz Body Mass Index (BMI) 25.4 ABG / Lab / Microbiology Data Result Diagrams: 06/30/21 05:55 06/30/21 05:55 Laboratory: Laboratory Results - last 24 hr 06/30/21 05:55: WBC 5.3, RBC 3.59 L, Hgb 10.6 L, Hct 32.3 L, MCV 90.0, MCH 29.5, MCHC 32.8, RDW Std Deviation 45.9 H, RDW Coeff of Bria 13.8, Plt Count 229, MPV 9.3, Immature Gran % (Auto) 0.200, Neut % (Auto) 59.4, Lymph % (Auto) 32.1, [place] % (Auto) 7.0, Eos % (Auto) 0.9, Baso % (Auto) 0.4, Absolute Neuts (auto) 3.2, Absolute Lymphs (auto) 1.70, Nucleated RBC % 0 06/30/21 05:55: Sodium 134 L, Potassium 4.5, Chloride 105, Carbon Dioxide 25.0, Anion Gap 4 L, BUN 28 H, Creatinine 1.33 H, Estim Creat Clear Calc 26.98, Est GFR (MDRD) Af Amer 49 L, Est GFR (MDRD) Non-Af 41 L, BUN/Creatinine Ratio 21.1 H , Glucose 89, Calcium 9.3 D/C Instructions Discharge Diet: Low fat / Low cholesterol Discharge Activity: Return to Normal Activity Weight Bearing Status: Weight bearing as tolerated Call your doctor if you observe: Fever of 101 or Higher, Shortness of breath, Swelling in the ankles, Chest pain and Increased palpitations (irregular heartbeat) Meaningful Use Info Meaningful Use Diagnoses (Choose all that apply): None applicable Discharge Plan Admission Admit Date/Time: 06/28/21 20:15 Primary Reason for Your Visit: hyponatremia, chest pain Attending Provider: Gudelia Queen Primary Care Provider: Nereida Valdez Instructions Additional Instructions / Restrictions: to take lasix 20mg prn for swelling of lower extremities. lisinopril increased to 40mg daily. Amlodipine stopped due to lower extremity edema. HCTZ stopped due to hyponatremia Discharge Orders/Prescriptions Prescriptions: New lisinopril 20 mg tablet 20 mg PO DAILY Qty: 30 RF: 0 furosemide 20 mg tablet 20 mg PO DAILY PRN (Reason: edema) Qty: 30 RF: 1 Continued trazodone 50 MG tablet 50 mg PO QHS RF: 0 aspirin 81 MG tablet 81 mg PO MOFR RF: 0 pantoprazole 20 MG tablet 40 mg PO DAILY RF: 0 fluticasone propionate 1 SPRAY spray,suspension 2 spray NASAL DAILY RF: 0 acetaminophen [Tylenol] 325 MG capsule 650 mg PO Q6H PRN PRN (Reason: Pain) RF: 0 levothyroxine 25 MCG tablet 25 mcg PO DAILY RF: 0 cholecalciferol (vitamin D3) 2,000 UNIT capsule 2,000 unit PO DAILY RF: 0 gabapentin 100 mg capsule 100 mg PO TID PRN (Reason: sciatica) RF: 0 rosuvastatin 5 mg tablet 5 mg PO DAILY RF: 0 famotidine 20 mg Tablet 20 mg PO DAILY RF: 0 potassium chloride 20 mEq Tablet Extended Release 20 meq PO DAILY RF: 0 amoxicillin 500 mg capsule 500 mg PO BID RF: 0 Discontinued lisinopril [Zestril] 10 MG tablet 40 mg PO DAILY RF: 0 hydrochlorothiazide 12.5 MG capsule 12.5 mg PO DAILY RF: 0 amlodipine 5 MG tablet 10 mg PO DAILY RF: 0 furosemide 20 mg tablet 20 mg PO BID RF: 0 Referrals / Follow Up: Nereida Valdez MD [Primary Care Provider] - Within 2 Weeks Disposition Disposition (needs filled in before D/C Order can be placed): Home, Self Care Charges/Coding Visit Charges Inpatient E&M: 30781 Disch Hosp
== END 2021-06-30 16:04 | disposition home or self-care (01) ==
LOC: ED 20:37 → PCU 21:16
PROVIDERS: Admitting Provider Family Medicine; Emergency Provider Emergency Medicine; PCP Internal Medicine; Visit Provider Student in an Organized Health Care Education/Training Program
DX: R07.89 Other chest pain (principal); N39.0 Urinary tract infection, site not specified; E78.5 Hyperlipidemia, unspecified; G47.33 Obstructive sleep apnea (adult) (pediatric); E87.1 Hypo-osmolality and hyponatremia; M19.90 Unspecified osteoarthritis, unspecified site; I12.9 Hypertensive chronic kidney disease with stage 1 through stage 4 chronic kidney disease, or unspecified chronic kidney disease; N17.9 Acute kidney failure, unspecified; N18.32 Chronic kidney disease, stage 3b; K21.9 Gastro-esophageal reflux disease without esophagitis; E03.9 Hypothyroidism, unspecified; E55.9 Vitamin D deficiency, unspecified; Z79.82 Long term (current) use of aspirin; Z79.890 Hormone replacement therapy; Z79.899 Other long term (current) drug therapy
CPT/HCPCS: 36415; 71045; 78452; 80048; 80053; 80061; 82570; 83735; 83930; 83935; 84300; 84439; 84443; 84484; 85025; 92610; 93005; 93017; 96361; 96372; 96374; 97161; 97166; 97530; 97802; 99218; 99251; 99285; A9500; J7030; A4216; G0378; G0463; J2405; J2785

== ENCOUNTER → 2021-08-04 06:35 | Outpatient (CLI) | payer MEDICARE, OTHER, SELFPAY ==
--- NOTE | 2021-08-04 06:40 | CT_ITS ---
STUDY: CT ABDOMEN AND PELVIS WITHOUT CONTRAST REASON FOR EXAM: Female, 80 years old. ACUTE CYSTITIS W/HEMATURIA RADIATION DOSAGE (If Supplied By Facility): CTDIvol = ( 6.56 ) mGy, DLP = ( 304.83 ) mGycm TECHNIQUE: Transaxial images were obtained from the dome of the diaphragm to the symphysis pubis without oral contrast, and without intravenous contrast. Sagittal and coronal images were reconstructed. Individualized dose optimization techniques were used for this CT. COMPARISON: Comparison is made with prior study dated 06/20/2018. FINDINGS: The visualized lung bases are unremarkable. Coronary artery calcification. Normal liver. Normal gallbladder and extrahepatic biliary system. Normal spleen. Normal pancreas. Normal bilateral adrenal glands. There is a 5.3 cm x 4.2 cm cyst arising from the mid to lateral portion of the right kidney. There is a 1.6 cm x 1 sinus cyst in the upper lateral aspect of the right kidney. There is a 1.1 cm cyst in the lower pole of the left kidney. Moderate sized hiatal hernia. Normal small intestine. There are multiple colonic diverticula consistent with diverticulosis. The appendix is visualized and appears normal. There is diffuse atherosclerotic calcification of the abdominal aorta and its major visceral branches, without a demonstrated aneurysm. Normal inferior vena cava. Normal retroperitoneum. The urinary bladder is not adequately distended for assessment. A pessary device is seen. Bilateral tubal ligation clips are present. Small right inguinal hernia containing a nondilated small bowel loop. There are diffuse degenerative changes of the visualized lumbar spine. Loss of the normal lumbar lordosis. CT/Abdomen/Pelvis without Cont IMPRESSION: Bilateral renal cysts. Moderate sized hiatal hernia. Small right inguinal hernia containing a nondilated small bowel. Electronically Signed: Fredrick Hester MD at 8:49 EST , Service support ,
== END ==
PROVIDERS: PCP Internal Medicine; Referring Provider Urology; Visit Provider Urology
DX: N30.01 Acute cystitis with hematuria (principal)
CPT/HCPCS: 74176

== ENCOUNTER 2021-09-22 14:14 | Outpatient (CLI) | payer MEDICARE, OTHER, SELFPAY | END 2021-09-22 23:59 | disposition home or self-care (01) | LOC: LAB 14:15 | PROVIDERS: PCP Internal Medicine; Visit Provider Urology | DX: N39.0 Urinary tract infection, site not specified (principal) | CPT/HCPCS: 87077; 87086; 87088; 87186 ==

== ENCOUNTER 2021-11-17 10:34 | Outpatient (CLI) | payer MEDICARE, OTHER, SELFPAY | END 2021-11-17 23:59 | disposition home or self-care (01) | LOC: LAB 10:35 | PROVIDERS: PCP Internal Medicine; Referring Provider Urology; Visit Provider Urology | DX: N30.01 Acute cystitis with hematuria (principal) | CPT/HCPCS: 87086; 87088 ==

== ENCOUNTER 2021-11-29 10:01 | Outpatient (CLI) | payer MEDICARE, OTHER, SELFPAY | END 2021-11-29 23:59 | disposition home or self-care (01) | LOC: LAB 10:03 | PROVIDERS: PCP Internal Medicine; Referring Provider Urology; Visit Provider Urology | DX: N30.01 Acute cystitis with hematuria (principal) | CPT/HCPCS: 87077; 87086; 87088; 87186 ==

== ENCOUNTER 2025-05-06 09:27 | Emergency (ER) | payer MEDICARE, OTHER, SELFPAY ==
[2025-05-06 09:28] VITALS: BP 178/60; PULSE 76; RESP 16; TEMP 36.4; O2SAT 98; BMI 26.9
--- NOTE | 2025-05-06 09:44 | ED.VIS.FALL ---
HPI HPI - Fall History of Present Illness Chief Complaint: Fall Informant: patient Occured/Mechanism Occurred: Today Mechanism/Context: Yes same level fall and Yes slip Pain/Injury Location: Right knee Pain Location: head and lower extremity Quality of Pain: Dull Current Severity: Gone Worsened by: Nothing Relieved by: Rest Narrative Narrative: Patient presents after a fall that occurred today. Patient states she slipped on a wet floor and fell. Patient states she hit her head but denies any loss of consciousness. Patient complains of pain in her right knee. Patient states she is scheduled for an ablation in her right knee in a few weeks. Patient states her pain is mainly over the medial aspect of her knee. Patient denies any paresthesias or weakness. Patient describes her pain as dull. Patient states it is better with rest. [facility] Medical History Eczema Vitamin D deficiency Hypothyroid EBENEZER (obstructive sleep apnea) HLD (hyperlipidemia) DDD (degenerative disc disease) Osteoarthritis Insomnia HTN (hypertension) GERD (gastroesophageal reflux disease) Home Medications ?Medication ?Instructions ?Recorded ?Last Taken ?Type aspirin 81 mg tablet,delayed [address] [facility] 05/28/14 02/10/19 History release pantoprazole 20 mg tablet,delayed 40 mg PO DAILY gerd 05/28/14 12/04/19 07:00 History release 40 MG trazodone 50 mg tablet 50 mg PO QHS sleep 05/28/14 02/10/19 History acetaminophen 325 mg capsule 650 mg PO Q6H PRN PRN Pain 05/07/18 02/10/19 History (Tylenol) fluticasone propionate 50 2 spray DAILY allergies 05/07/18 02/04/19 History mcg/actuation nasal spray,suspension cholecalciferol (vitamin D3) 50 2,000 unit PO DAILY supplement 02/11/19 02/11/19 History mcg (2,000 unit) capsule levothyroxine 25 mcg tablet 25 mcg PO DAILY thyroid 02/11/19 02/11/19 History gabapentin 100 mg capsule 100 mg PO TID PRN sciatica 06/09/21 Unknown History rosuvastatin 5 mg tablet 5 mg PO DAILY 06/09/21 Unknown History amoxicillin 500 mg capsule 500 mg PO BID 06/28/21 Unknown History famotidine 20 mg tablet 20 mg PO DAILY 06/28/21 Unknown History potassium chloride 20 mEq 20 meq PO DAILY 06/28/21 Unknown History tablet,extended release furosemide 20 mg tablet 20 mg PO DAILY PRN edema #30 tabs 06/30/21 Unknown Rx lisinopril 20 mg tablet 20 mg PO DAILY #30 tabs 06/30/21 Unknown Rx Allergy/AdvReac Type Severity Reaction Status Date / Time pravastatin Allergy Other Verified 05/06/25 09:28 simvastatin (From Zocor) Allergy Other Verified 05/06/25 09:28 adhesive tape AdvReac Rash Verified 05/06/25 09:28 hydrocodone (From Melber) AdvReac MENTAL Verified 05/06/25 09:28 STATUS CHANGE nitrofurantoin (From AdvReac Upset Verified 05/06/25 09:28 Macrobid) Stomach Family History (Updated 06/28/21 @ 20:[address] Flower Carter MD) Mother Heart disease Father Heart disease Sister Diabetes Breast cancer Brother Diabetes Surgical History Hx of right breast biopsy History of bilateral tubal ligation S/P bilateral cataract extraction S/P cholecystectomy History of total left knee replacement Social History household members: none Smoking Status: Never smoker alcohol intake: never substance use type: does not use ROS ROS ED Constitutional Constitutional ED: Reports chills and subjective; Denies fever(s) Eyes Eyes: Denies blurry vision or change in vision ENT ENT ED: Denies rhinorrhea or sore throat Cardiovascular Cardiovascular: Denies chest pain or palpitations Respiratory/Chest Respiratory/Chest: Denies cough or dyspnea Gastrointestinal Gastrointestinal: Denies nausea or vomiting Genitourinary Genitourinary ED: Denies dysuria or hematuria Musculoskeletal Musculoskeletal: Denies back pain or neck pain Integumentary Denies abscess or rash Neurologic Neurologic: Denies headache(s) or weakness Allergic/Immunologic Allergic/Immunologic ED: Denies mouth swelling or urticaria EXAM Physical Exam Const Vital Signs: 05/06/25 09:28 05/06/25 09:34 Temperature 97.6 F L Temperature Source Oral Pulse Rate 76 Respiratory Rate 16 Respiratory Effort Normal Respiratory Depth Normal Respiratory Pattern Normal Blood Pressure 178/60 H Blood Pressure Mean 99 Pulse Ox 98 Oxygen Delivery Method Room Air Room Air Positive well nourished and well developed Constitutional Narrative: BMI is 27.0. General Appearance ED: well developed and NAD HEENT HEENT Narrative: There is mild tenderness over the left occipital/parietal area. There is no bony crepitance or step-off. There is no hematoma noted. There are no lacerations noted. Neck full ROM General: Negative for tenderness Resp normal respiratory effort and clear to auscultation bilaterally Cardio regular rate and regular rhythm GI non-tender and non-distended Palpation: soft Extremity Extremity Narrative: There is tenderness over the medial aspect of the right knee. There is no bony crepitus or step-off. There is no obvious deformity noted. Range of motion is slightly limited in all motions of the right knee secondary to pain. Strength is 5/5 bilaterally in the lower extremities. Extensor mechanism is intact. Sensation was intact to light touch in the lower extremities bilaterally. Neuro oriented x3, CN's II-XII intact bilaterally, moves all extremities, no focal motor deficits and no sensory deficits noted [place] Coma Scale: document GCS findings Spontaneous Obeys Commands Oriented 15 Sensorium / Orientation: alert Motor Exam: strength 5/5 throughout Psych mental status grossly normal MDM MDM MDM Narrative Medical decision making narrative: Differential diagnosis includes intracranial bleeding, closed head injury, right knee fracture, contusion, and degenerative arthritis. X-rays of the right knee will be obtained to assess for fracture and degenerative arthritis. CT scan of the brain will be obtained to assess for intracranial bleeding. Radiography Diagnostic Testing: X-rays of the right knee were obtained. There are 4 views. On my independent interpretation, there is no acute fracture. There are degenerative changes noted. Radiologist also interpreted the x-rays and agrees. CT scan of the brain was obtained. There is no acute intracranial abnormality. This was interpreted by the radiologist and was also independently reviewed by myself. Treatment and Re-Evaluation Narrative: Patient was advised of her findings. Patient was instructed to ice and elevate the right knee. Patient was offered a knee immobilizer which she declined. Patient was instructed to follow-up with her primary care physician in 5 to 7 days. Patient understood and was agreeable with plan. All questions were answered. Discharge Plan Triage Chief Complaint: Fall ED Provider: Hao Pina Dx/Rx/DC Orders Clinical Impression: Contusion of right knee, initial encounter, Closed head injury, Fall Instructions: ED Contusion, Lower Extremity, ED Head Injury (Adult) Prescriptions: No Action trazodone 50 MG tablet 50 mg PO QHS aspirin 81 MG tablet 81 mg PO MOFR Patient Comments: sun-sun-sun pantoprazole 20 MG tablet 40 mg PO DAILY Patient Comments: ON HOLD FOR COLONOSCOPY fluticasone propionate 1 SPRAY spray,suspension 2 spray NASAL DAILY acetaminophen [Tylenol] 325 MG capsule 650 mg PO Q6H PRN PRN (Reason: Pain) levothyroxine 25 MCG tablet 25 mcg PO DAILY cholecalciferol (vitamin D3) 2,000 UNIT capsule 2,000 unit PO DAILY gabapentin 100 mg capsule 100 mg PO TID PRN (Reason: sciatica) Patient Comments: Take 1 capsule by mouth three times daily as needed (sciatica pain in leg) This is to last 30 days. rosuvastatin 5 mg tablet 5 mg PO DAILY Patient Comments: Take 1 tablet by mouth once daily. famotidine 20 mg Tablet 20 mg PO DAILY potassium chloride 20 mEq Tablet Extended Release 20 meq PO DAILY amoxicillin 500 mg capsule 500 mg PO BID Patient Comments: TAKE 1 CAPSULE BY MOUTH TWICE DAILY Rx Instructions: for 3 days, started 11/15 PM. lisinopril 20 mg tablet 20 mg PO DAILY Qty: 30 0RF furosemide 20 mg tablet 20 mg PO DAILY PRN (Reason: edema) Qty: 30 1RF Rx Instructions: take lasix 20mg as needed for swelling in lower extremities Primary Care Provider: Omid Samuel Referrals: Nereida Valdez MD [Med Staff - Pulmonary Physical Therapist, Internal Medicine] - 5-7 Days Print Language: Latvian Disposition Disposition: Home, Self Care
--- NOTE | 2025-05-06 10:15 | CT_ITS ---
PROCEDURE: BRAIN/HEAD WITHOUT CONTRAST 05/06/2025 REASON FOR EXAM: INJURY/PAIN TECHNIQUE: Procedure Code: CTBR Modality: CT Procedure: BRAIN/HEAD WITHOUT CONTRAST Coronal and Sagittal reconstruction series were provided. One or more dose reduction techniques were used (e.g., Automated exposure control, adjustment of the mA and/or kV according to patient size, use of iterative reconstruction technique. RADIATION DOSE SUMMARY: CTDlvol: 44.99 mGy DLP: 812.98 mGycm COMPARISON: CT head 12/12/2018. FINDINGS: Brain: Extensive low density in the deep cerebral white matter most likely represents advanced chronic small vessel ischemic disease. No acute territorial infarction. No acute intracranial hemorrhage. No mass-effect or midline shift. Atherosclerotic calcifications of the carotid siphons. No acute orbital abnormalities. CSF Spaces: Advanced generalized cerebral atrophy Sinuses/Mastoids: Clear. Bones: No acute bony abnormalities. CT/Brain/Head without Contrast IMPRESSION: No acute intracranial abnormalities. Reading Location: [id number]
[2025-05-06 10:27] VITALS: BP 154/78; PULSE 89; RESP 16; O2SAT 95
--- NOTE | 2025-05-06 10:45 | RAD_ITS ---
PROCEDURE: KNEE 4 OR MORE VIEWS 05/06/2025 REASON FOR EXAM: INJURY/PAIN TECHNIQUE: Procedure Code: RADKN Modality: DX Procedure: KNEE 4 OR MORE VIEWS Laterality: Right knee COMPARISON: None FINDINGS: Bones: No fracture. No suspicious bone lesion. Joints: Tricompartmental joint space narrowing and osteoarthritis with calcification of the lateral meniscus. Effusion: Small joint effusion Soft tissues: Vascular calcification. Soft tissue swelling Other: RAD/Knee 4 or More Views IMPRESSION: DEGENERATIVE OSTEOARTHROSIS. NO ACUTE FINDINGS. Reading Location: [place] [id number]
[2025-05-06 12:47] VITALS: BP 156/67; PULSE 68; RESP 14; TEMP 36.6; O2SAT 99
== END 2025-05-06 12:50 | disposition home or self-care (01) ==
PROVIDERS: Emergency Provider Emergency Medicine; PCP Family Medicine; Visit Provider Emergency Medicine
DX: S09.90XA Unspecified injury of head, initial encounter (principal); S80.01XA Contusion of right knee, initial encounter; I10 Essential (primary) hypertension; E78.5 Hyperlipidemia, unspecified; W18.30XA Fall on same level, unspecified, initial encounter; Z79.82 Long term (current) use of aspirin; E03.9 Hypothyroidism, unspecified; Z79.890 Hormone replacement therapy; Z79.899 Other long term (current) drug therapy; K21.9 Gastro-esophageal reflux disease without esophagitis; Z98.51 Tubal ligation status; Z98.41 Cataract extraction status, right eye; Z98.42 Cataract extraction status, left eye; Z90.49 Acquired absence of other specified parts of digestive tract; Z96.652 Presence of left artificial knee joint
CPT/HCPCS: 70450; 73564; 99284